=== PATIENT | female | born 1970 | race Caucasian/White ===

== ENCOUNTER 2016-07-14 01:26 | Inpatient (IN) | payer OTHER ==
--- NOTE | ~2016-07-14 | DS ---
Unit #: [id number] #: [id number] Patient: BREEZY GIL [id number] [place] [address] [id number] MR#: [id number] NAME: BREEZY GIL ROOM: P178 Age: 46 Sex: F Admission Date: 07/14/2016 : 1970 Discharge Date: 07/17/2016 Attending Physician: Bradley Orta M.D. Primary Care Physician: Primary Care Physician No DISCHARGE SUMMARY REASON FOR ADMISSION The patient is a 46-year-old single white female, admitted to the [facility] unit with recurrent abuse of alcohol. HOSPITAL COURSE The patient was admitted to the [facility] unit and placed on routine detoxification protocol for alcohol. She was continued on home medications including Glucophage, Robaxin, Claritin, Proventil, and Protonix. She was restarted on Remeron 15 mg at h.s. given her complaints of poor sleep. This physician discussed with the patient possible initiation of Vivitrol in hopes of addressing the patient's ongoing substance abuse. Once again, the patient declined this intervention and on 07/17/2016, requested discharge from the hospital. Once again, the patient's participation within therapeutic milieu had been very poor. Once again, the patient declined a possible pharmacotherapeutic intervention which would reduce her drinking, indicating this physician that the patient fully plans to began drinking shortly upon her discharge from this facility. She was denying suicidal ideation on the morning of 07/17/2016. It is worth noting that the patient did have significant swelling thought to be related to hypoalbuminemia. This did resolve somewhat during her stay in the hospital. FINAL DIAGNOSES Alcohol use disorder, hepatitis C, alcoholic liver disease, diabetes mellitus, environmental allergies, chronic obstructive pulmonary disease, gastroesophageal reflux disease. DISPOSITION ON DISCHARGE The patient is discharged on the following medications; Glucotrol XL 10 mg daily before breakfast for diabetic management, Protonix 40 mg daily for GERD, Proventil HFA one puff q.4 hours p.r.n. shortness of air, Claritin 10 mg once daily for environmental allergies, Robaxin 750 mg t.i.d. for muscle relaxation, Glucophage 500 mg b.i.d. before meals for diabetic management. DISCHARGE INSTRUCTIONS No dietary or physical restrictions were placed upon the patient at the time of discharge. FOLLOWUP Followup will take place through the auspices of community mental health and chemical dependency treatment resources. The patient declining an offer of CD-IOP. Unit #: [id number] #: [id number] Patient: BREEZY GIL PROGNOSIS Her prognosis remains guarded. Dictated by... Bradley Orta M.D. DORA/angel TD: 07/17/2016 23:17 JOB #: [id number] DISCHARGE SUMMARY Page 1 of 1 X Bradley Orta MD X DISCHARGE SUMMARY
--- NOTE | ~2016-07-14 | PN ---
Unit #: [id number] #: [id number] Patient: BREEZY IGL [id number] [facility] [address] [place] [address] [id number] MR#: [id number] NAME: BREEZY GIL ROOM: 78 Age: 46 Sex: F Admission Date: 07/14/2016 : 1970 Attending Physician: Bradley Orta M.D. Admitting Physician: Bradley Orta M.D. Primary Care Physician: Primary Care Physician Sue GALLEGOS PROGRESS NOTES DATE 07/16/2016 DISCUSSION The patient requests reinitiation of psychotropic medications. I have spoken with the patient today; however, about my feelings that it is not safe for her to be taking a psychotropic medication given the potential interaction with alcohol which she continues to be unable to avoid abuse of, I will go ahead and order the ReVia challenge as the patient's swelling is significantly reduced and thought to be related to hypoproteinemia and malnutrition in anticipation of possible administration of Vivitrol shot prior to discharge. Dictated by... Bradley Orta M.D. CB/nataliya TD: 07/18/2016 12:48 JOB #: [id number] [facility] PROGRESS NOTES Page 1 of 1 X Bradley Orta MD PROGRESS NOTE
--- NOTE | ~2016-07-14 | PA ---
Unit #: [id number] #: [id number] Patient: BREEZY GIL [id number] [facility] [address] [place] [address] [id number] I MR#: [id number] NAME: BREEZY GIL ROOM: 74 Age: 46 Sex: F Admission Date: 07/14/2016 : 1970 Date of Assessment: 07/14/2016 Attending Physician: Bradley Orta M.D. Admitting Physician: Bradley Orta M.D. Primary Care Physician: Primary Care Physician No PSYCHIATRIC ASSESSMENT IDENTIFYING INFORMATION The patient is a 46-year-old white female admitted with recurrent abuse of alcohol. CHIEF COMPLAINT It is the same thing. INFORMANT(S) Patient, reliability is fair. HISTORY OF PRESENT ILLNESS The patient is a 46-year-old white female well known to this physician from multiple previous admissions to this facility. She is readmitted having once again relapsed on alcohol. The patient reports no specific participant to this episode but states that she is "fearful that she will kill herself if she continues to drink this way." She states that she has been compliant with prescribed medications during her last stay in this facility. Her psychotropic medications were discontinued given her seemingly abject inability to maintain any significant period of sobriety. When seen today the patient is reporting positive suicidal ideation mainly stating that she plans to "drink herself to . For more complete history of present illness please refer to previous dictated notes. PAST PSYCHIATRIC HISTORY Reviewed, no changes. PAST MEDICAL HISTORY Reviewed, no changes. MEDICATIONS 1. Glucotrol 2. Robaxin 3. Claritin 4. Glucophage 5. Proventil 6. Protonix ALLERGIES Azithromycin, Ketoralac, tromethamine, Toradol, codeine, Zofran, Tramadol, Keflex, latex, erythromycin, morphine, nicotine, propoxyphene, Darvocet. FAMILY HISTORY Reviewed, no changes. Unit #: [id number] #: [id number] Patient: BREEZY GIL SOCIAL HISTORY Reviewed, no changes. MENTAL STATUS EXAMINATION Examination at this time reveals the patient to be an obese disheveled white female appearing significantly older than her stated age. She is in significant physical distress related to alcohol withdrawal. She is awake, alert and oriented in all spheres. Her mood is dysphoric, her affect is flat. Speech is impoverished but generally relevant and coherent. There are no gross deficits in memory or cognition noted. Intelligence is judged to be in the average range based on fund of knowledge. The patient is cooperative throughout the interview. She is currently endorsing positive suicidal ideation. She denies homicidal ideation. She denies any psychotic symptoms. Her judgment and insight appear to be at baseline. ASSETS AND LIABILITIES ASSETS: To be assessed. LIABILITIES: Ongoing substance use. DIAGNOSTIC IMPRESSION 1. Alcohol use disorder. 2. Diabetes mellitus. 3. Environmental allergies. 4. COPD. 5. GERD. TREATMENT PLAN The patient will continue previously prescribed medications. She has in the past declined offers of naltrexone, Vivitrol, Antabuse, etc but again I will bring these medications back into the conversation with her as her stay in the hospital progresses. I do not at this point feel comfortable with reinitiation of any pharmacotherapy given the patient's inability to maintain any significant period of sobriety. ESTIMATED LENGTH OF STAY Five to seven days. Dictated by... Bradley Orta M.D. DORA/katie TD: 07/15/2016 00:17 JOB #: [id number] Unit #: [id number] #: [id number] Patient: BREEZY GIL PSYCHIATRIC ASSESSMENT Page 1 of 1 X Bradley Orta MD X PSYCHIATRIC ASSESSMENT
--- NOTE | ~2016-07-14 | HP ---
Unit #: [id number] #: [id number] Patient: LORRIE GIL [id number] [place] [address] [id number] I MR#: [id number] NAME: LORRIE GIL ROOM: P174 Age: 46 Sex: F Admission Date: 07/14/2016 : 1970 Attending Physician: Bradley Orta M.D. Admitting Physician: Bradley Orta M.D. Primary Care Physician: Primary Care Physician No HISTORY AND PHYSICAL HISTORY OF PRESENT ILLNESS Lorrie Irvin is a 46 year old admitted to [facility] because of her continued abuse of alcohol. She has had numerous admissions to this facility. PAST MEDICAL HISTORY 1. Long history of alcohol abuse 2. History of withdrawal seizures 3. Hepatitis C 4. History of recurrent DVTs PAST SURGICAL HISTORY 1. T & A 2. Cholecystectomy 3. Incisional hernia repair 4. Left foot 5. Oral ALLERGIES Napsyl, Toradol, Zofran, Ultram, Keflex, codeine, Nitrol patch, nicotine patch, erythromycin, latex. SOCIAL HISTORY Smokes one pack per day. Drinks alcohol on a daily basis and has a history of crack cocaine and IV drug use. FAMILY HISTORY Medically noncontributory. REVIEW OF SYSTEMS CONSTITUTIONAL: No fever or chills. HEENT: Denies any sore throat, ear pain or runny nose. CARDIOVASCULAR: Denies chest pain, irregular heart rhythm or palpitations. CHEST: Denies shortness of breath or cough. No hemoptysis. GASTROINTESTINAL: She does report nausea and abdominal pain. ENDOCRINE: Denies history of increased thirst or urination. No recent significant weight loss or gain. GENITOURINARY: Denies dysuria, frequency, or hematuria. SKIN: Denies any rashes. HEMATOLOGIC: Denies history of increased bleeding or bruising. MUSCULOSKELETAL: Denies any hot, swollen joints. No generalized muscle pain. NEUROLOGIC: Denies problems with vision or speech. No frequent, severe Unit #: [id number] #: [id number] Patient: LORRIE GIL headaches. No numbness, tingling or weakness in any extremities. Denies loss of bladder or bowel control. CURRENT MEDICATIONS 1. Detox protocol 2. Protonix 40 mg q day 3. Claritin 10 mg q day 4. Methocarbamol 750 mg t.i.d. 5. Glucotrol XL 10 mg q.a.m. 6. Glucophage 500 mg b.i.d. PHYSICAL EXAMINATION GENERAL: Alert, obese, appearing much older than her stated age of 46, in no apparent distress. VITAL SIGNS: Blood pressure 164/84, heart rate 94, respirations 16, temperature 98.6. WEIGHT: 200 pounds. HEIGHT: 5'2". SKIN: Warm and dry without rash or lesion. HEENT: Normocephalic. TMs not viewed. Oral and nasal passages clear. Conjunctivae clear. Pupils equal, round and reactive to light and accommodation. Extraocular movements intact. NECK: Supple without lymphadenopathy or thyromegaly. HEART: Regular rate and rhythm without murmur. LUNGS: Clear. ABDOMEN: Soft, nontender. : Not done. EXTREMITIES: No evidence of cyanosis, clubbing or edema. Moves all extremities without focal deficit. NEUROLOGICAL: Unable to complete extended exam. She does move all extremities without focal deficit. Hand crew dispatcher is equal and gait normal. IMPRESSION Psychiatric admission. RECOMMENDATIONS PSYCHIATRIC: Per psychiatrist. MEDICAL: I see no contraindications to participating in facility's activities. MEDICAL PROGNOSIS Good. MEDICAL CONDITION Stable. Dictated by... Nasrin Mae PRosaliaARosalia-Ruby. for Chrissy Aguilar/katei TD: 07/15/2016 02:39 Unit #: [id number] #: [id number] Patient: LORRIE GIL JOB #: [id number] HISTORY AND PHYSICAL Page 1 of 1 X Nasrin Mae X HISTORY AND PHYSICAL
--- NOTE | ~2016-07-14 | PN ---
Unit #: [id number] #: [id number] Patient: BREEZY GIL [id number] [facility] [address] [place] [address] [id number] MR#: [id number] NAME: BREEZY GIL ROOM: P178 Age: 46 Sex: F Admission Date: 07/14/2016 : 1970 Attending Physician: Bradley Orta M.D. Admitting Physician: Bradley Orta M.D. Primary Care Physician: Primary Care Physician Sue GALLEGOS PROGRESS NOTES DATE 07/15/2016 DISCUSSION The patient remains quite dysphoric and flat. Staff has noted significant weight gain particularly in the abdominal area probably indicative of ascites from her chronic liver disease. We will ask for medical consult and I have ordered an ammonia level additionally. We will look to possibly initiate naltrexone pending results of that testing. Dictated by... Bradley Orta M.D. CB/leigh TD: 07/15/2016 16:37 JOB #: [id number] [facility] PROGRESS NOTES Page 1 of 1 X Bradley Orta MD X PROGRESS NOTE
[~2016-07-14 01:26] MED LIST: COUMADIN PO; FLAGYL; LEVAQUIN; LORTAB 10/500 T1 TAB; LORTAB 7.5-5001 TAB; LOVENOX SUBQ; PAMELOR; PHENERGAN PR; PHENERGAN12.5 MG/SU RC; PRILOSEC; PRILOSEC PO; VICODIN 5/500 T1 TAB
[2016-07-14 09:46] LABS: BASOPHIL% 0.6 % (0-2.5); EOSINOPHIL# 0.1 X10e3 (0-0.7); EOSINOPHIL% 2.7 % (0.0-7.0); HEMOGLOBIN 11.1 gm/dL (12.0-16.0); LYMPHOCYTE% 20.2 % (17.0-45.0); MEAN CORPUSCULAR HEMOGLOBIN 27.4 PG (28-34); MEAN CORPUSCULAR HGB CONC 31.8 g/dL (30-36); MEAN PLATELET VOLUME 8.3 FL (6.5-11.5); MONOCYTE# 0.2 X10e3 (0-1.0); MONOCYTE% 4.7 % (3.0-12.0); NEUTROPHIL# 3.4 X10e3 (1.5-7.1); NEUTROPHIL% 71.8 % (40-75); PLATELET COUNT 127 X10e3 (140-420); RED BLOOD COUNT 4.07 X10e (3.90-5.30); RED CELL DISTRIBUTION WIDTH 22.6 % (11.0-15.5); WHITE BLOOD COUNT 4.7 X10e3 (4.0-10.5)
[2016-07-14 09:52] LABS: ALBUMIN SERUM 2.8 g/dL (3.5-5.0); BILIRUBIN,TOTAL 0.3 mg/dL (0.2-2.0); CREATININE SERUM 0.5 mg/dL (0.6-1.4); GLOM FILT RATE Estimated 116.9 mL/min (>60); POTASSIUM 3.4 mmol/L (3.5-5.1); PROTEIN TOTAL SERUM 5.8 g/dL (6.0-8.3)
[2016-07-14 09:56] LABS: DIFF IND YES
[2016-07-14 09:58] LABS: FREE THYROXIN (T4) 0.84 ng/dL (0.58-1.64)
[2016-07-14 10:22] LABS: ANISOCYTOSIS MOD; PLATELET ESTIMATE DECREASED (NORMAL)
== END 2016-07-17 16:05 | disposition home or self-care (01) | DRG 897 ==
LOC: P1E 01:26
PROVIDERS: Specialist
PROC: HZ2ZZZZ Detoxification Services for Substance Abuse Treatment (ICD-10-PCS; principal; 2016-07-14)
DX: F10.10 Alcohol abuse, uncomplicated (principal); J44.9 Chronic obstructive pulmonary disease, unspecified; E11.9 Type 2 diabetes mellitus without complications; K21.9 Gastro-esophageal reflux disease without esophagitis; B19.20 Unspecified viral hepatitis C without hepatic coma; Z86.718 Personal history of other venous thrombosis and embolism; Z90.49 Acquired absence of other specified parts of digestive tract; F17.210 Nicotine dependence, cigarettes, uncomplicated; Z79.84 Long term (current) use of oral hypoglycemic drugs
CPT/HCPCS: 80053; 82140; 84439; 84443; 85025; 86592

== ENCOUNTER 2016-07-20 15:26 | Inpatient (IN) | payer OTHER ==
--- NOTE | ~2016-07-20 | PA ---
Unit #: [id number] #: [id number] Patient: BREEZY GIL [id number] [place] [address] [id number] I MR#: [id number] NAME: BREEZY GIL ROOM: 79 Age: 46 Sex: F Admission Date: 07/20/2016 : 1970 Date of Assessment: 07/21/2016 Attending Physician: Bradley Orta M.D. Admitting Physician: Bradley Orta M.D. Primary Care Physician: Primary Care Physician No PSYCHIATRIC ASSESSMENT IDENTIFYING INFORMATION The patient is a 46-year-old white female readmitted the [facility] unit three days after her last discharge complaining of suicidal ideation and ongoing abuse of alcohol. CHIEF COMPLAINT I wasn't through detox INFORMANT The patient, reliability is poor. HISTORY OF PRESENT ILLNESS The patient is a 46-year-old white female last discharged from this facility on 07/17/2016. The patient returned reporting that she "left too early". The patient has been drinking a fifth of vodka on a daily basis and is reporting positive suicidal ideation. She states that she had attempted to jump in front of car on the date of admission but was stopped by her boyfriend. She had also reported positive suicidal ideation with plans to stab herself. When seen today the patient states that "I don't want to " and admits to ongoing abuse of alcohol. She claims to have not been detox at the time of her last discharge but is gently confronted with the fact that she requested discharge. Further the patient is confronted with that fact that she has steadfastly refused to consider initiation of Vivitrol, Campral or Antabuse medication which could assist in her maintenance of sobriety. For more complete history of present illness please refer to previous dictated notes. PAST PSYCHIATRIC HISTORY Reviewed no changes. PAST MEDICAL HISTORY Reviewed no changes. MEDICATIONS 1. Metformin 2. Robaxin 3. Claritin 4. Proventil 5. Protonix 6. Glipizide ALLERGIES Azithromycin, Zofran, tramadol, Keflex, codeine, erythromycin, ketorolac, Unit #: [id number] #: [id number] Patient: BREEZY GIL latex, morphine, Nicotrol. FAMILY HISTORY Noncontributory. SOCIAL HISTORY Reviewed no changes. MENTAL STATUS EXAMINATION At this time reveals the patient to be an obese disheveled white female appearing her stated age. She is in no apparent physical distress at the time of the examination. She is awake, alert and oriented in all spheres. Her mood is dysphoric. Her affect blunted. Speech is generally relevant and coherent. There are no gross deficits in memory or cognition noted. Intelligence is judged to be in the average range based on fund of knowledge. The patient is cooperative throughout the interview. She is currently endorsing positive suicidal ideation. She denies homicidal ideation. She denies any psychotic symptoms. Her judgement and insight appear to be at baseline. ASSETS To be assessed. LIABILITIES Ongoing substance use. DIAGNOSTIC IMPRESSION 1. Alcohol use disorder 2. Dysthymic disorder 3. Alcoholic liver disease 4. Chronic pain 5. Environmental allergies 6. COPD 7. Hypertension 8. GERD TREATMENT PLAN The patient remains hospitalized for safety and stabilization. We will continue previously prescribed medications. I have again spoken to the patient today regarding possible initiation of pharmacotherapeutic measures to address her alcohol craving but again she seems less then optimally interested in considering these treatment options. Whatever the case of routine detoxification protocol has been ordered and suicidal precautions are in place. ESTIMATE LENGTH OF STAY IN THE HOSPITAL Three to seven days. Dr. Palumbo will assume care of the patient in my absence. Dictated by... Bradley Orta M.D. DORA/katie TD: 07/21/2016 21:41 JOB #: [id number] Unit #: [id number] #: [id number] Patient: BREEZY GIL PSYCHIATRIC ASSESSMENT Page 1 of 1 X Bradley Orta MD X PSYCHIATRIC ASSESSMENT
--- NOTE | ~2016-07-20 | HP ---
Unit #: [id number] #: [id number] Patient: LORRIE GIL [id number] [place] [address] [id number] I MR#: [id number] NAME: LORRIE GIL ROOM: P179 Age: 46 Sex: F Admission Date: 07/20/2016 : 1970 Attending Physician: Bradley Orta M.D. Admitting Physician: Bradley Orta M.D. Primary Care Physician: Primary Care Physician No HISTORY AND PHYSICAL HISTORY OF PRESENT ILLNESS Lorrie Irvin is a 46 year old, admitted to [facility] because of her abuse of alcohol. She was just discharged from this facility. The patient was seen and history and physical, dated 07/14/2016 was reviewed. This is current. No changes. Please see history and physical, dated 07/14/2016. Dictated by... Nasrin Mae P.A.-C. for Chrissy Aguilar/nataliya TD: 07/21/2016 12:35 JOB #: [id number] HISTORY AND PHYSICAL Page 1 of 1 X Nasrin Mae HISTORY AND PHYSICAL
== END 2016-07-24 18:05 | disposition home or self-care (01) | DRG 897 ==
LOC: P1E 15:26
DX: F10.20 Alcohol dependence, uncomplicated (principal); R45.851 Suicidal ideations; K70.9 Alcoholic liver disease, unspecified; F34.1 Dysthymic disorder; G89.29 Other chronic pain; J44.9 Chronic obstructive pulmonary disease, unspecified; I10 Essential (primary) hypertension; K21.9 Gastro-esophageal reflux disease without esophagitis
CPT/HCPCS: 82947; 86592

== ENCOUNTER 2016-07-29 12:33 | Inpatient (IN) | payer OTHER ==
--- NOTE | ~2016-07-29 | PN ---
Unit #: [id number] #: [id number] Patient: BREEZY GIL [id number] [facility] [address] [place] [address] [id number] I MR#: [id number] NAME: BREEZY GIL ROOM: [facility] Age: 46 Sex: F Admission Date: 07/29/2016 : 1970 Attending Physician: Bradley Orta M.D. Admitting Physician: Bradley Orta M.D. Primary Care Physician: Generic Doctor Not In System [facility] PROGRESS NOTES DATE 07/31/2016 DISCUSSION The patient has been transferred on one-to-one precautions to the [address] [place] [address] Unit after having become extremely confused and combative last evening. She is cleared considerably today and is apologetic over these events. She is requesting "something for sleep," and we will watch for a couple more days before initiating p.o. Naltrexone in anticipation of a Vivitrol injection prior to discharge. Dictated by... Bradley Orta M.D. CB/cruz TD: 07/31/2016 14:45 JOB #: [id number] [facility] PROGRESS NOTES Page 1 of 1 X Bradley Orta MD PROGRESS NOTE
--- NOTE | ~2016-07-29 | DS ---
Unit #: [id number] #: [id number] Patient: BREEZY GIL [id number] [facility] [address] [place] [address] [id number] I MR#: [id number] NAME: BREEZY GIL ROOM: [facility] Age: 46 Sex: F Admission Date: 07/29/2016 : 1970 Discharge Date: 08/01/2016 Attending Physician: Bradley Orta M.D. Primary Care Physician: Generic Doctor Not In System DISCHARGE SUMMARY REASON FOR ADMISSION The patient is a 46-year-old white female, admitted to the hospital after once again becoming suicidal and abusing alcohol. HOSPITAL COURSE The patient was initially admitted to the [facility] unit, but she began banging her head and voicing suicidal ideation on 07/30/2016 and transfer to the [address] [place] [address] unit became necessary as well as one-to-one precautions. The patient calmed rapidly and by 07/31/2016, was exhibiting little in the way of signs or symptoms of withdrawal. This physician again spoke with the patient regarding possible initiation of therapeutic means to address her ongoing and seemingly intractable alcohol use. The patient was agreeable to a trial of ReVia. This physician hoped that the patient will remain hospitalized long enough to receive a shot of Vivitrol; however, by 08/01/2016, the patient was demanding discharge and met no criteria for involuntary hospitalization. Discharge was ordered. FINAL DIAGNOSES Dysthymic disorder; alcohol use disorder; hepatitis C; alcoholic liver disease, end stage; environmental allergies; chronic obstructive pulmonary disease; diabetes mellitus. DISPOSITION ON DISCHARGE The patient is discharged on the following medications: Glucophage 500 mg b.i.d. for diabetic management; Robaxin 750 mg t.i.d. for muscle relaxation; Claritin 10 mg once daily for environmental allergy; Proventil HFA one puff q.4 hours p.r.n. shortness of air; Glucotrol XL 10 mg daily before breakfast for diabetic management; ReVia 50 mg at bedtime for alcohol craving. DISCHARGE INSTRUCTIONS No dietary or physical restrictions were placed on the patient at the time of discharge. FOLLOWUP Followup will take place through the auspices of community mental health resources. PROGNOSIS The patient's prognosis remains guarded. Dictated by... Unit #: [id number] #: [id number] Patient: LOUISE,BREEZY NATHEN Orta M.D. CB/angel TD: 08/02/2016 06:21 JOB #: [id number] DISCHARGE SUMMARY Page 1 of 1 X Bradley Orta MD X DISCHARGE SUMMARY
--- NOTE | ~2016-07-29 | PN ---
Unit #: [id number] #: [id number] Patient: BREEZY GIL [id number] [facility] [address] [place] [address] [id number] I MR#: [id number] NAME: BREEZY GIL ROOM: [facility] Age: 46 Sex: F Admission Date: 07/29/2016 : 1970 Attending Physician: Bradley Orta M.D. Admitting Physician: Bradley Orta M.D. Primary Care Physician: Generic Doctor Not In System [facility] PROGRESS NOTES DATE 07/30/2016 DISCUSSION The patient continues to exhibit significant symptoms of withdrawal with her 2 most recent CIWA scores of 14 and 11. She is continuing to require medications. We will look to begin p.o. naltrexone in the next couple of days in anticipation of administration of Vivitrol injection. Dictated by... Bradley Orta M.D. CB/cruz TD: 07/30/2016 13:56 JOB #: [id number] [facility] PROGRESS NOTES Page 1 of 1 X Bradley Orta MD X PROGRESS NOTE
--- NOTE | ~2016-07-29 | PA ---
Unit #: [id number] #: [id number] Patient: BREEZY GIL [id number] [facility] [address] [place] [address] [id number] I MR#: [id number] NAME: BREEZY GIL ROOM: [facility] Age: 46 Sex: F Admission Date: 07/29/2016 : 1970 Date of Assessment: 07/29/2016 Attending Physician: Bradley Orta M.D. Admitting Physician: Bradley Orta M.D. Primary Care Physician: Generic Doctor Not In System PSYCHIATRIC ASSESSMENT IDENTIFYING INFORMATION The patient is a 46-year-old white female just discharged from this facility on 07/24/2016. She returns intoxicated and voicing suicidal ideation. INFORMANT(S) Patient. RELIABILITY Poor. CHIEF COMPLAINT None given. HISTORY OF PRESENT ILLNESS The patient is a 46-year-old white female well-known to this physician from multiple previous admissions to this facility the last of which ended on 07/24/2016. The patient returns stating that she maintained sobriety for no significant period of time and is now voicing positive suicidal ideation. The patient does report that she is drinking a fifth of hard liquor on a daily basis. She denies abuse of other psychoactive substances. She is reporting positive suicidal ideation at this time. For a more complete history of present illness, please refer to previous dictated notes. PAST PSYCHIATRIC HISTORY Reviewed, no changes. FAMILY HISTORY Noncontributory. SOCIAL HISTORY Reviewed, no changes. MEDICAL HISTORY Reviewed, no changes. MEDICATION HISTORY At the time of admission, the patient's prescribed medications include Metformin, Robaxin, Claritin, Proventil HFA, glipizide and Protonix. ALLERGIES Azithromycin, Zofran, tramadol, Keflex, codeine, erythromycin, ketorolac, Unit #: [id number] #: [id number] Patient: BREEZY GIL latex, Morphine, Nicotrol. MENTAL STATUS EXAM At this time, reveals the patient to be an obese, disheveled white female appearing her stated age. She is in no apparent physical distress at the time of examination. She is somewhat groggy having received an IM dose of Geodon. She is oriented in all spheres. Her mood is dysphoric. Her affect flat. Speech is generally relevant and coherent though impoverished. There are no gross deficits in memory or cognition noted. Intelligence is judged to be in the average range based on fund of knowledge. The patient is less than optimally cooperative during interview. She is currently endorsing positive suicidal ideation. She denies homicidal ideation. She denies any psychotic symptoms. He judgement and insight appear to be at baseline. ASSETS AND LIABILITIES Patient's assets to be assessed. Liabilities, ongoing substance use. ADMITTING DIAGNOSES 1. Alcohol use disorder. 2. Dysthymic disorder. 3. Alcoholic liver disease. 4. Chronic pain. 5. Hepatitis C by history. 6. Environmental allergies. 7. Chronic obstructive pulmonary disease. 8. Hypertension. 9. Gastroesophageal reflux disease. PSYCHIATRIC PLAN/TREATMENT GOALS The patient remains hospitalized for safety and stabilization. She is today expressing interest in initiation of Vivitrol and we will consider initiation of this medication as the patient's stay in the hospital progresses. Suicide precautions are in place and she has required a one time dose of Geodon secondary to her aggressive behavior while intoxicated on admission to the unit. ESTIMATED LENGTH OF STAY Three to five days with follow up to take place through the auspices of community mental health resources. Dictated by... Bradley Orta M.D. DORA/leigh TD: 07/29/2016 15:11 JOB #: [id number] Unit #: [id number] #: [id number] Patient: BREEZY GIL PSYCHIATRIC ASSESSMENT Page 1 of 1 X Bradley Orta MD X PSYCHIATRIC ASSESSMENT
--- NOTE | ~2016-07-29 | HP ---
Unit #: [id number] #: [id number] Patient: LORRIE GIL [id number] [facility] [address] [place] [address] [id number] I MR#: [id number] NAME: LORRIE GIL ROOM: P178 Age: 46 Sex: F Admission Date: 07/29/2016 : 1970 Attending Physician: Bradley Orta M.D. Admitting Physician: Bradley Orta M.D. Primary Care Physician: Generic Doctor Not In System HISTORY AND PHYSICAL Lorrie Irvin is a 46 year old admitted to [facility] because of her continued abuse of alcohol. She has had numerous admissions to this facility for the same. Patient was seen and H and P dated 07/14/16 was reviewed. This is current. No changes. Please see H and P dated 07/14/16. Dictated by... Nasrin Mae P.A.-C. for Chrissy Aguilar/leigh TD: 07/29/2016 20:57 JOB #: [id number] HISTORY AND PHYSICAL Page 1 of 1 X Nasrin Mae HISTORY AND PHYSICAL
== END 2016-08-01 15:44 | disposition home or self-care (01) | DRG 897 ==
LOC: P1E 12:33 → P1S 07-30 23:49
DX: F10.10 Alcohol abuse, uncomplicated (principal); R45.851 Suicidal ideations; K70.9 Alcoholic liver disease, unspecified; F34.1 Dysthymic disorder; I10 Essential (primary) hypertension; G89.29 Other chronic pain; Z86.19 Personal history of other infectious and parasitic diseases; J44.9 Chronic obstructive pulmonary disease, unspecified; K21.9 Gastro-esophageal reflux disease without esophagitis
CPT/HCPCS: 82947; 86592; J2550; J3486

== ENCOUNTER 2016-08-12 15:34 | Inpatient (IN) | payer OTHER ==
--- NOTE | ~2016-08-12 | CO ---
Unit #: [id number] #: [id number] Patient: LORRIE GIL [id number] [place] [address] [id number] I MR#: [id number] NAME: LORRIE GIL ROOM: [facility] Age: 46 Sex: F Admission Date: 08/12/2016 : 1970 Attending Physician: Bradley Orta M.D. Primary Care Physician: Generic Doctor Not In System Consultation Date: 08/13/2016 CONSULTATION REPORT SUBJECTIVE Lorrie Irvin is a 46-year-old with history of recurrent DVTs. As outlined in her admission H and P dated 08/12/2016, the most recent DVT was diagnosed approximately 2 weeks prior to this admission. Please see H and P dated 08/12/2016. Dictated by... Nasrin Mae P.A.-C. for Chrissy Aguilar/angel TD: 08/13/2016 23:47 JOB #: [id number] CONSULTATION REPORT Page 1 of 1 X Nasrin Mae CONSULTATION REPORT
--- NOTE | ~2016-08-12 | HP ---
Unit #: [id number] #: [id number] Patient: LORRIE GIL [id number] [place] [address] [id number] I MR#: [id number] NAME: LORRIE GIL ROOM: P179 Age: 46 Sex: F Admission Date: 08/12/2016 : 1970 Attending Physician: Bradley Orta M.D. Admitting Physician: Bradley Orta M.D. Primary Care Physician: Generic Doctor Not In System HISTORY AND PHYSICAL HISTORY OF PRESENT ILLNESS Lorrie Irvin is a 46 year old admitted to [facility] because of her continued abuse of alcohol. She has had numerous admissions to this facility for treatment of the same. PAST MEDICAL HISTORY 1. Long history of alcohol abuse. 2. History of withdrawal seizures. 3. Hepatitis C. 4. History of recurrent DVT's. Her latest DVT was diagnosed approximately 2 weeks ago in her left arm after a PICC line was placed. 5. Diabetes mellitus. PAST SURGICAL HISTORY 1. T and A. 2. Cholecystectomy. 3. Incisional hernia repair. 4. Left foot. 5. Oral. ALLERGIES Napsyl, Toradol, Zofran, Ultram, Keflex, codeine, Nitrol patch, nicotine patch, erythromycin, latex. SOCIAL HISTORY Smokes 1 pack per day. Drinks at least a fifth of liquor on a daily basis. Admits to a history of crack cocaine and IV drug use. FAMILY HISTORY Medically noncontributory. REVIEW OF SYSTEMS CONSTITUTIONAL: No fever or chills. HEENT: Denies any sore throat, ear pain or runny nose. CARDIOVASCULAR: Denies chest pain, irregular heart rhythm or palpitations. CHEST: Denies shortness of breath or cough. No hemoptysis. GASTROINTESTINAL: Denies nausea, vomiting, diarrhea or chronic constipation. ENDOCRINE: Denies history of increased thirst or urination. No recent significant weight loss or gain. GENITOURINARY: Denies dysuria, frequency, or hematuria. SKIN: Denies any rashes. Unit #: [id number] #: [id number] Patient: LORRIE GIL HEMATOLOGIC: Denies history of increased bleeding or bruising. MUSCULOSKELETAL: Denies any hot, swollen joints. No generalized muscle pain. NEUROLOGIC: Denies problems with vision or speech. No frequent, severe headaches. No numbness, tingling or weakness in any extremities. Denies loss of bladder or bowel control. CURRENT MEDICATIONS 1. Detox protocol. 2. Lovenox 120 mg daily. 3. Methocarbamol 500 mg t.i.d. 4. Proventil inhaler p.r.n. 5. Glucophage 500 mg b.i.d. 6. Glucotrol XL 10 mg daily. 7. Claritin 10 mg daily. PHYSICAL EXAMINATION GENERAL: Alert, obese, in no apparent distress. VITAL SIGNS: Blood pressure 124/70, heart rate 80, respirations 16, temperature 98.6. WEIGHT: 197. HEIGHT: 5 feet 3 inches. SKIN: Warm and dry without rash or lesion. HEENT: Normocephalic. TMs not viewed. Oral and nasal passages clear. Conjunctivae clear. PERRLA. EOMs intact. NECK: Supple without lymphadenopathy or thyromegaly. HEART: Regular rate and rhythm without murmur. LUNGS: Clear. ABDOMEN: Soft, nontender. : Not done. EXTREMITIES: No evidence of cyanosis, clubbing or edema. Moves all without focal deficit. NEUROLOGICAL: Grossly within normal limits. Cranial Nerves: II: Visual beatty are intact. III, IV AND : Extraocular movements are intact. Pupils are equal, round and reactive to light. V: Facial sensation is grossly normal. VII: Facial movements and expression are normal. VIII: Auditory acuity grossly intact. IX, X: Uvula is midline. Phonation is normal. XI: Patient shrugs shoulders and turns head normally. XII: Tongue protrudes in the midline. Sensory and Motor Function: Sensory and motor sensation is grossly normal. Motor: moves all extremities well. Coordination: Gait is normal. Deep Tendon Reflexes: Intact. IMPRESSION 1. Psychiatric admission. 2. Alcohol abuse. She continues to drink. 3. History of recurrent DVTs. Last DVT documented approximately 2 weeks ago. Patient tells me she has been maintained on Lovenox shots since that time. She was not started on Coumadin and was told to follow up with her PCP for further instructions. She has not seen her PCP. RECOMMENDATIONS PSYCHIATRIC: Per psychiatrist. MEDICAL: 1. See no contraindications to participate in facility's activities. 2. Dc Coumadin and Lovenox 120 mg daily. Unit #: [id number] #: [id number] Patient: LORRIE GIL 3. Start Lovenox 40 mg subcu b.i.d. 4. Detox per protocol. 5. Continue Glucophage and Glucotrol. MEDICAL PROGNOSIS Good. MEDICAL CONDITION Stable. Dictated by... Nasrin Mae P.A.-C. for Chrissy Aguilar/leigh TD: 08/12/2016 20:21 JOB #: [id number] HISTORY AND PHYSICAL Page 1 of 1 X Nasrin Mae X HISTORY AND PHYSICAL
--- NOTE | ~2016-08-12 | DS ---
Unit #: [id number] #: [id number] Patient: BREEZY GIL [id number] [place] [address] [id number] I MR#: [id number] NAME: BREEZY GIL ROOM: 79 Age: 46 Sex: F Admission Date: 08/12/2016 : 1970 Discharge Date: 08/14/2016 Attending Physician: Bradley Orta M.D. Primary Care Physician: Generic Doctor Not In System DISCHARGE SUMMARY REASON FOR ADMISSION The patient is a 46-year-old white female, admitted to the [facility] unit for alcohol detox. HOSPITAL COURSE The patient was admitted to the [facility] unit and placed on a routine detoxification protocol for alcohol. Home medications were continued and the patient was followed related to her clotting status by Ms. Mae. The patient pushed for discharge almost immediately upon arriving into the hospital and exhibited very little in the way of signs or symptoms of withdrawal having only left [facility] a couple of days prior to readmission. On 08/14/2016, the patient requested discharge from the hospital. At that point, she exhibited little in the way of signs or symptoms of withdrawal, but was nonetheless warned of the risks of untreated alcohol withdrawal particularly given her current compromised medical status i.e., recent DVT. Discharge was ordered against medical advice. FINAL DIAGNOSES Alcohol use disorder, dysthymic disorder, history of deep vein thrombosis, gastroesophageal reflux disease, hypertension, end stage hepatic disease. DISPOSITION ON DISCHARGE The patient is discharged on the following medications; Robaxin 500 mg t.i.d. for muscle relaxation, Claritin 10 mg once daily for environmental allergy, Proventil HFA one puff q.4 hours p.r.n. shortness of air, Glucotrol 10 mg daily for diabetic management, Protonix 40 mg daily for GERD, Glucophage 500 mg b.i.d. for diabetic management, Coumadin 7.5 mg every day for anticoagulation. DISCHARGE INSTRUCTIONS No dietary or physical restrictions were placed on the patient at the time of discharge. As noted previously, her discharge is considered against medical advice given her risks of ongoing symptoms of alcohol withdrawal. The patient is informed of these risks including the risks of seizure, delirium tremens, and . It is fully the suspicion of this physician that the patient will be drinking shortly after her discharge from the hospital. She had declined efforts on the part of this physician to reinitiate pharmacotherapy to mitigate some of her alcohol use including possibly use of Antabuse, Vivitrol, and/or Campral. Dictated by... Unit #: [id number] #: [id number] Patient: BREEZY GIL Bradley Orta M.D. CB/angel TD: 08/14/2016 23:22 JOB #: [id number] DISCHARGE SUMMARY Page 1 of 1 X Bradley Orat MD X DISCHARGE SUMMARY
--- NOTE | ~2016-08-12 | PA ---
Unit #: [id number] #: [id number] Patient: BREEZY IGL [id number] [facility] [address] [place] [address] [id number] MR#: [id number] NAME: BREEZY GIL ROOM: P179 Age: 46 Sex: F Admission Date: 08/12/2016 : 1970 Date of Assessment: 08/13/2016 Attending Physician: Bradley Orta M.D. Admitting Physician: Bradley Orta M.D. Primary Care Physician: Generic Doctor Not In System PSYCHIATRIC ASSESSMENT IDENTIFYING INFORMATION The patient is a 46-year-old white female well known to this physician and this facility. She is readmitted reporting positive suicidal ideation. CHIEF COMPLAINT "I'm not suicidal, can I go home ?" INFORMANTS(S) Patient, reliability is fair. HISTORY OF PRESENT ILLNESS The patient is a 46-year-old white female admitted to the [facility] Unit after she had presented to this facility yesterday voicing positive suicidal ideation. She reports that she has been suicidal on and off for the past month. She had reported positive plan to jump in front of an automobile. She has been drinking fifth of hard liquor daily. She left this facility on 08/01/2016 and then was admitted to [facility] on 08/03/2016 and was hospitalized there for 5 days. She was released on 08/08/2016 and began drinking almost immediately. The patient reports that current stressors include difficulties with her 26-year-old daughter who is a heroin addict. She also reports that her son was in a motor vehicle accident yesterday. She is currently denying suicidal ideation, but at the time of admission did report positive suicidal ideation with plan to step in front of an automobile or hang herself. For more complete history of present illness, please refer to previously dictated notes. PAST PSYCHIATRIC HISTORY Reviewed, no changes. PAST MEDICAL HISTORY Significant for a history of recent DVT. MEDICATIONS Warfarin, gabapentin, Risperdal, and Lovenox. ALLERGIES Azithromycin, Zofran, tramadol, cephalexin, codeine, erythromycin, ketorolac, latex, morphine, and nicotine patch. FAMILY HISTORY Reviewed, no changes. Unit #: [id number] #: [id number] Patient: BREEZY GIL SOCIAL HISTORY Reviewed, no changes. MENTAL STATUS EXAMINATION Examination at this time reveals the patient to be a disheveled obese white female appearing older than her stated age. She is in no apparent physical distress at the time of examination. She is awake, alert, and oriented in all spheres. Her mood is mildly dysphoric, her affect constricted. Speech is generally well-coherent. There are no gross deficits in memory or cognition noted. Intelligence is judged to be in the average range based on fund of knowledge. The patient is cooperative throughout the interview. She is currently denying suicidal or homicidal ideation or psychotic features. Judgment and insight appear to be intact. ASSETS AND LIABILITIES The patient's assets are to be assessed. Liabilities: Ongoing alcohol dependence. DIAGNOSTIC IMPRESSION 1. Alcohol use disorder, severe. 2. DVT. 3. Dysthymic disorder. 4. Obesity. 5. Alcoholic liver disease. 6. Chronic obstructive pulmonary disease. TREATMENT PLAN The patient remains hospitalized for safety and stabilization. We will reinitiate previously prescribed medications, and a medical consult sought related to the patient's history of DVT. She is currently denying suicidal ideation and requesting discharge. However, given threats made at the time of admission, it is my feeling that we are best served watching the patient for at least another 24 hours, and we look at discharge then. Dictated by... Bradley Orta M.D. DORA/cruz TD: 08/13/2016 13:28 JOB #: [id number] PSYCHIATRIC ASSESSMENT Page 1 of 1 X Bradley Orta MD X PSYCHIATRIC ASSESSMENT
[2016-08-12 19:04] LABS: PROTHROMBIN TIME (PATIENT) 10.2 SECONDS (9.6-11.5)
[2016-08-13 12:23] LABS: BASOPHIL# 0.1 X10e3 (0-0.3); BASOPHIL% 1.3 % (0-2.5); DIFF IND NO; EOSINOPHIL# 0.1 X10e3 (0-0.7); EOSINOPHIL% 2.4 % (0.0-7.0); HEMATOCRIT 32.9 % (35.0-45.0); HEMOGLOBIN 10.2 gm/dL (12.0-16.0); LYMPHOCYTE# 0.9 X10e3 (1.0-3.5); LYMPHOCYTE% 19.5 % (17.0-45.0); MEAN CELL VOLUME 87.1 FL (83-96); MEAN CORPUSCULAR HEMOGLOBIN 27.1 PG (28-34); MEAN CORPUSCULAR HGB CONC 31.1 g/dL (30-36); MEAN PLATELET VOLUME 8.6 FL (6.5-11.5); MONOCYTE# 0.3 X10e3 (0-1.0); MONOCYTE% 6.3 % (3.0-12.0); NEUTROPHIL# 3.1 X10e3 (1.5-7.1); NEUTROPHIL% 70.5 % (40-75); PLATELET COUNT 137 X10e3 (140-420); RED BLOOD COUNT 3.77 X10e (3.90-5.30); WHITE BLOOD COUNT 4.5 X10e3 (4.0-10.5)
[2016-08-13 12:39] LABS: ALBUMIN SERUM 3.1 g/dL (3.5-5.0); BILIRUBIN,TOTAL 0.5 mg/dL (0.2-2.0); CALCIUM SERUM 9.1 mg/dL (8.4-10.2); CREATININE SERUM 0.6 mg/dL (0.6-1.4); GLOM FILT RATE Estimated 110.1 mL/min (>60); POTASSIUM 3.9 mmol/L (3.5-5.1); PROTEIN TOTAL SERUM 6.3 g/dL (6.0-8.3)
[2016-08-13 12:46] LABS: THYROID STIMULATING HORMONE 2.54 uIU/ml (0.34-5.60)
[2016-08-13 12:53] LABS: FREE THYROXIN (T4) 0.69 ng/dL (0.58-1.64)
[2016-08-14 09:43] LABS: INR 1.1; PROTHROMBIN TIME (PATIENT) 11.4 SECONDS (9.6-11.5)
[2016-08-14 12:30] LABS: URINE APPEARANCE CLEAR; URINE BILIRUBIN NEG (NEG); URINE BLOOD 2+ (NEG); URINE COLOR DK YELLOW; URINE GLUCOSE NEG (NEG); URINE KETONE NEG (NEG); URINE LEUKOCYTE ESTERASE NEG (NEG); URINE NITRATE NEG (NEG); URINE PH 7.5 (5-8); URINE PROTEIN NEG (NEG); URINE SPECIFIC GRAVITY 1.008 (1.003-1.035); URINE UROBILINOGEN 0.2 MG/DL (NEG)
[2016-08-14 12:32] LABS: URBCS1 AUWI 0-2 /[HPF] (0-2); URINE BACTERIA AUWI 1+ (NEGATIVE); URINE SQUAMOUS EPITHELIAL CELL OCC /[HPF]; UWBCS1 AUWI 0-2 (0-5)
[2016-08-14 13:19] LABS: AMPHETAMINE NEG (NEG); BARBITURATES NEG (NEG); BENZODIAZEPINES POS (NEG); COCAINE NEG (NEG); MARIJUANA NEG (NEG); OPIATES NEG (NEG); TRICYCLIC ANTIDEPRESSANTS NEG (NEG); U METHADONE NEG (NEG)
== END 2016-08-14 14:45 | disposition left against medical advice (07) | DRG 894 ==
LOC: P1E 15:34
PROVIDERS: Specialist
PROC: HZ2ZZZZ Detoxification Services for Substance Abuse Treatment (ICD-10-PCS; principal; 2016-08-12)
DX: F10.20 Alcohol dependence, uncomplicated (principal); R45.851 Suicidal ideations; I82.409 Acute embolism and thrombosis of unspecified deep veins of unspecified lower extremity; K70.9 Alcoholic liver disease, unspecified; J44.9 Chronic obstructive pulmonary disease, unspecified; F34.1 Dysthymic disorder; E66.9 Obesity, unspecified; Z88.5 Allergy status to narcotic agent; Z88.8 Allergy status to other drugs, medicaments and biological substances; Z88.1 Allergy status to other antibiotic agents; Z91.040 Latex allergy status; Z86.19 Personal history of other infectious and parasitic diseases; E11.9 Type 2 diabetes mellitus without complications; Z90.49 Acquired absence of other specified parts of digestive tract; F17.210 Nicotine dependence, cigarettes, uncomplicated; Z79.84 Long term (current) use of oral hypoglycemic drugs; Z79.01 Long term (current) use of anticoagulants; K21.9 Gastro-esophageal reflux disease without esophagitis
CPT/HCPCS: 80053; 80307; 81003; 84439; 84443; 85025; 85610; 86592; J1650

== ENCOUNTER 2016-10-07 10:00 | Inpatient (IN) | payer OTHER ==
--- NOTE | ~2016-10-07 | PN ---
Unit #: [id number] #: [id number] Patient: BREEZY GIL [id number] [facility] [address] [place] [address] [id number] I MR#: [id number] NAME: BREEZY GIL ROOM: P184 Age: 46 Sex: F Admission Date: 10/07/2016 : 1970 Attending Physician: Bradley Orta M.D. Admitting Physician: Bradley Orta M.D. Primary Care Physician: Generic Doctor Not In System [facility] PROGRESS NOTES DATE 10/09/2016 DISCUSSION The patient is abed today. She continues to complain of significant discomfort related to alcohol withdrawal, particularly GI in nature. She reports increased delusional thinking during the night and we will go ahead an increase her Risperdal to 3 mg. Additionally, we will begin p.o. ReVia this evening in anticipation of administration of a Vivitrol shot prior to discharge. Dictated by... Bradley Orta M.D. CB/leigh TD: 10/09/2016 15:04 JOB #: [id number] [facility] PROGRESS NOTES Page 1 of 1 X Bradley Orta MD X PROGRESS NOTE
--- NOTE | ~2016-10-07 | PA ---
Unit #: [id number] #: [id number] Patient: BREEZY GIL [id number] [place] [address] [id number] MR#: [id number] NAME: BREEZY GIL ROOM: 84 Age: 46 Sex: F Admission Date: 10/07/2016 : 1970 Date of Assessment: 10/07/2016 Attending Physician: Bradley Orta M.D. Admitting Physician: Bradley Orta M.D. Primary Care Physician: Generic Doctor Not In System PSYCHIATRIC ASSESSMENT IDENTIFYING INFORMATION The patient is a 46-year-old white female, well known to this physician from multiple previous admissions to this facility. She is readmitted having relapsed on alcohol and reporting suicidal ideation. INFORMANT(S) Patient. RELIABILITY Patient reliability is good. CHIEF COMPLAINT "I want to quit drinking." HISTORY OF PRESENT ILLNESS The patient is a 46-year-old white female, last discharged from this facility on 08/14. She is readmitted with a recent relapse of alcohol use. The patient was reporting suicidal ideation last evening with plan to place a plastic bag over her head. The patient's blood alcohol on admission was 0.109. The patient has a history of multiple previous admissions to this facility but has never been compliant with the prescribed psychotropic medications or follow up for more than a day or so. The patient is, today, expressing interest in initiation of Vivitrol and other steps to curb her alcohol craving. For a more complete history of present illness please refer to the previously dictated notes. PAST PSYCHIATRIC HISTORY Reviewed and no changes. PAST MEDICAL HISTORY Reviewed and no changes. MEDICATIONS 1. Robaxin 2. Claritin 3. Glipizide 4. Protonix 5. Glucophage 6. Lamictal 7. Risperdal 8. Gabapentin 9. Albuterol 10. Remeron Unit #: [id number] #: [id number] Patient: BREEZY GIL ALLERGIES Cephalexin, Zofran, erythromycin, Keflex, azithromycin, codeine, latex, tramadol, Ketoralac, morphine, and nicotine patch. FAMILY HISTORY Reviewed and no changes. SOCIAL HISTORY Reviewed and no changes. MENTAL STATUS EXAM At this time reveals an obese disheveled white female, appearing her stated age. She is in no apparent physical distress at the time of the examination. She is awake, alert, and oriented in all spheres. Her mood is dysphoric. Her affect blunted. Speech is generally relevant and coherent. There are no gross deficits to memory or cognition noted. Intelligence is judged to be in the average range based on fund of knowledge. The patient is cooperative throughout the interview. She continues to endorse positive suicidal ideation during today's interview. She denies homicidal ideation. ASSETS To be assessed. LIABILITIES Ongoing substance use. DIAGNOSTIC IMPRESSION [place] I: Alcohol use disorder. Dysthymic disorder. [place] II: [place] III: Diabetes mellitus. Cirrhotic liver disease. TREATMENT PLAN The patient remains hospitalized for safety and stabilization. We will continue previously prescribed medications and we will consider initiation of pharmacotherapeutic measures to assist the patient's maintenance of sobriety including possible initiation of Vivitrol and/or Campral. ESTIMATED LENGTH OF STAY IN THE HOSPITAL Seac-ok-hqmpd days. Dictated by... Bradley Orta M.D. DORA/nataliya TD: 10/08/2016 08:55 JOB #: [id number] Unit #: [id number] #: [id number] Patient: BREEZY GIL PSYCHIATRIC ASSESSMENT Page 1 of 1 X Bradley Orta MD X PSYCHIATRIC ASSESSMENT
--- NOTE | ~2016-10-07 | CO ---
Unit #: [id number] #: [id number] Patient: LORRIE GIL [id number] [place] [address] [id number] I MR#: [id number] NAME: LORRIE GIL ROOM: [facility] Age: 46 Sex: F Admission Date: 10/07/2016 : 1970 Attending Physician: Bradley Orta M.D. Primary Care Physician: Cleo Doctor Not In System Consultation Date: 10/13/2016 CONSULTATION REPORT SUBJECTIVE Lorrie Irvin is a 46-year-old with a long history of alcohol abuse. Admission labs were significant for potassium of 3.3 and magnesium 0.8 with a calcium 6.9. ASSESSMENT Electrolyte and mineral deficiency. PLAN Tums 1000 mg chewable p.o. b.i.d. and Mag Ox 400 mg one p.o. b.i.d. The patient will need to follow up with her primary care. Dictated by... Nasrin Mae P.A.-C. for Chrissy Aguilar/angel TD: 10/22/2016 02:42 JOB #: [id number] CONSULTATION REPORT Page 1 of 1 X Nasrin Mae CONSULTATION REPORT
--- NOTE | ~2016-10-07 | PN ---
Unit #: [id number] #: [id number] Patient: BREEZY GIL [id number] [facility] [address] [place] [address] [id number] MR#: [id number] NAME: BREEZY GIL ROOM: P184 Age: 46 Sex: F Admission Date: 10/07/2016 : 1970 Attending Physician: Bradley Orta M.D. Admitting Physician: Bradley Orta M.D. Primary Care Physician: Generic Doctor Not In System [facility] PROGRESS NOTES DATE 10/08/2016 DISCUSSION The patient continues to complain of severe discomfort related to alcohol withdrawal. She remains dysphoric, anxious and hopeless and is expressing interest in initiation of pharmacotherapy to address her ongoing alcohol use. We will begin Campral 333 mg 2 tablets 3 times daily today and will look to possibly begin the patient on Vivitrol prior to her discharge from the hospital. Dictated by... Bradley Orta M.D. CB/leigh TD: 10/08/2016 17:12 JOB #: [id number] [facility] PROGRESS NOTES Page 1 of 1 X Bradley Orta MD PROGRESS NOTE
--- NOTE | ~2016-10-07 | PN ---
Unit #: [id number] #: [id number] Patient: LORRIE GIL [id number] [facility] [address] [place] [address] [id number] I MR#: [id number] NAME: LORRIE GIL ROOM: P184 Age: 46 Sex: F Admission Date: 10/07/2016 : 1970 Attending Physician: Bradley Orta M.D. Admitting Physician: Bradley Orta M.D. Primary Care Physician: Generic Doctor Not In System [facility] PROGRESS NOTES DATE OF SERVICE 10/13/2016 DISCUSSION Lorrie is seen today in coverage for Dr. Orta. She continues to have qrht-gj-jdidpkuy detox symptoms today and complains of flu-like symptoms including nausea and some abdominal discomfort. She is alert and fully oriented. Her memory and concentration are fair. Her thought processes are logical with no active psychosis. She continues to be equivocal about suicidal ideation. ASSESSMENT Alcohol dependence. PLAN We will recheck potassium and magnesium levels in the morning and continue with Phenergan for nausea. Dictated by... Chrissy Sotelo/katie TD: 10/18/2016 23:04 JOB #: [id number] [facility] PROGRESS NOTES Page 1 of 1 X David Palumbo MD PROGRESS NOTE
--- NOTE | ~2016-10-07 | CO ---
Unit #: [id number] #: [id number] Patient: LORRIE GIL [id number] [place] [address] [id number] I MR#: [id number] NAME: LORRIE GIL ROOM: 84 Age: 46 Sex: F Admission Date: 10/07/2016 : 1970 Attending Physician: Bradley Orta M.D. Primary Care Physician: Cleo Doctor Not In System Consultation Date: 10/08/2016 CONSULTATION REPORT Lorrie Irvin is a 46-year-old with history of alcohol abuse and diabetes mellitus. She has had numerous admissions to [facility] and is well known to us. During this admission, her Accu-Cheks will be monitored a.c. and h.s. She will be provided a NovoLog sliding scale and Glucophage 500 mg b.i.d. will be continued. Her Glucotrol XL 10 mg a day will be discontinued because of the risk of hypoglycemia especially during her detox. She does experience some nausea and vomiting during detox. Dictated by... Nasrin Mae P.A.-C. for Chrissy Aguilar/angel TD: 10/10/2016 21:38 JOB #: [id number] CONSULTATION REPORT Page 1 of 1 X Nasrin Mae CONSULTATION REPORT
--- NOTE | ~2016-10-07 | CO ---
Unit #: [id number] #: [id number] Patient: LORRIE GIL [id number] [place] [address] [id number] I MR#: [id number] NAME: LORRIE GIL ROOM: 84 Age: 46 Sex: F Admission Date: 10/07/2016 : 1970 Attending Physician: Bradley Orta M.D. Primary Care Physician: Generic Doctor Not In System Consultation Date: 10/10/2016 CONSULTATION REPORT Medical consult was requested by Dr. Orta and completed on 10/10/2016. HISTORY OF PRESENT ILLNESS Lorrie reports that for the past week, she has been having burning with urination and increased frequency. She denies muscle aches or chills and does not have any back pain. No blood in her urine. No odor. She does report she waking up frequently at night to urinate. UA showed positive nitrites, positive white blood cells, and 4+ bacteria. PHYSICAL EXAMINATION CARDIAC: Regular rate and rhythm. No murmurs, gallops, or rubs. RESPIRATORY: Clear to auscultation bilaterally. ABDOMEN: Bowel sounds positive in all quadrants. No abdominal tenderness with palpation. No CVA tenderness or flank pain. ASSESSMENT AND PLAN Urinary tract infection. We will begin amoxicillin 875 mg p.o. b.i.d. x3 days. Please notify if symptoms are unresolved. Dictated by... Radha Pérez A.P.R.N. for Chirssy Aguilar/angel TD: 10/10/2016 23:19 JOB #: [id number] CONSULTATION REPORT Page 1 of 1 X RADHA SIMON APRN CONSULTATION REPORT
--- NOTE | ~2016-10-07 | CO ---
Unit #: [id number] #: [id number] Patient: LORRIE GIL [id number] [place] [address] [id number] MR#: [id number] NAME: LORRIE GIL ROOM: [facility] Age: 46 Sex: F Admission Date: 10/07/2016 : 1970 Attending Physician: Bradley Orta M.D. Primary Care Physician: Cleo Doctor Not In System Consultation Date: 10/11/2016 CONSULTATION REPORT HISTORY OF PRESENT ILLNESS Lorrie reports having cramping and contractures of her hands that she first started noticing yesterday. She has also had tingling in her feet and her legs, but no leg or muscle cramps anywhere other than her hand. She denies any chest palpitations or chest pain. No shortness of breath or trouble breathing. Her potassium on 10/08/2016 was 3.1, this morning was 3.2; sodium this morning was 136. Hemoglobin was 9.8, hematocrit was 30.9, and she had platelets of 88. All CBC results are from 10/08/2016. She has no magnesium results. She has no other complaints. PHYSICAL EXAMINATION CARDIAC: Regular rate and rhythm. No murmur, gallop, or rub. RESPIRATORY: Clear to auscultation bilaterally. MUSCULOSKELETAL: Full range of motion of all joints including hands. No contractures noted on exam ASSESSMENT AND PLAN 1. Hand cramping. During evaluation, her hands appeared normal. However, staff report that they have seen contractures. Potassium was 3.2 this morning. We will begin her on 20 mEq of p.o. liquid potassium, and check a BMP and magnesium level in the morning. Please notify results. 2. Anemia. We will repeat a CBC tomorrow. Dictated by... Lidia BritoRRain. for Chrissy Aguilar/angel TD: 10/12/2016 01:22 JOB #: [id number] CONSULTATION REPORT Page 1 of 1 X [facility] AMIN X CONSULTATION REPORT
--- NOTE | ~2016-10-07 | HP ---
Unit #: [id number] #: [id number] Patient: LORRIE GIL [id number] [place] [address] [id number] I MR#: [id number] NAME: LORRIE GIL ROOM: P184 Age: 46 Sex: F Admission Date: 10/07/2016 : 1970 Attending Physician: Bradley Orta M.D. Admitting Physician: Bradley Orta M.D. Primary Care Physician: Cleo Doctor Not In System HISTORY AND PHYSICAL HISTORY OF PRESENT ILLNESS Lorrie Irvin is a 46 year old admitted to [facility] because of her continued abuse of alcohol. She has had numerous admissions to this facility. PAST MEDICAL HISTORY 1. Long history of alcohol abuse. 2. History of withdrawal seizures. 3. Hepatitis C. 4. History of recurrent DVTs. 5. Diabetes mellitus. PAST SURGICAL HISTORY 1. T and A. 2. Cholecystectomy. 3. Incisional hernia repair. 4. Left foot. 5. Oral. ALLERGIES Napsil, Toradol, Zofran, Ultram, Keflex, codeine, nitro patch, nicotine patch, erythromycin, and latex. SOCIAL HISTORY Smokes one pack per day. Drinks at least a fifth of liquor on a daily basis and has a history of crack cocaine use and IV drug use. FAMILY HISTORY Medically noncontributory. REVIEW OF SYSTEMS CONSTITUTIONAL: No fever or chills. HEENT: Denies any sore throat, ear pain or runny nose. CARDIOVASCULAR: Denies chest pain, irregular heart rhythm or palpitations. CHEST: Denies shortness of breath or cough. No hemoptysis. GASTROINTESTINAL: She does report generalized abdominal cramps with nausea. ENDOCRINE: Denies history of increased thirst or urination. No recent significant weight loss or gain. GENITOURINARY: Denies dysuria, frequency, or hematuria. SKIN: Denies any rashes. HEMATOLOGIC: Denies history of increased bleeding or bruising. MUSCULOSKELETAL: Denies any hot, swollen joints. No generalized muscle pain. Unit #: [id number] #: [id number] Patient: LORRIE GIL NEUROLOGIC: Denies problems with vision or speech. No frequent, severe headaches. No numbness, tingling or weakness in any extremities. Denies loss of bladder or bowel control. CURRENT MEDICATIONS 1. Detox protocol. 2. Protonix 40 mg q. day. 3. Risperdal 2 mg q.h.s. 4. Methocarbamol 500 mg t.i.d. 5. Glucophage 500 mg b.i.d. 6. Neurontin 300 mg t.i.d. 7. NovoLog per sliding scale. PHYSICAL EXAMINATION GENERAL: Alert, appearing much older than her stated age of 46. No apparent distress. VITAL SIGNS: Blood pressure 140/62, heart rate 80, respirations 16, and temperature 98.6. WEIGHT: 221. HEIGHT: 5 feet 2 inches. SKIN: Warm and dry without rash or lesion. HEENT: Normocephalic. TMs not viewed. Oral and nasal passages clear. Conjunctivae clear. PERRLA. EOMs intact. NECK: Supple without lymphadenopathy or thyromegaly. HEART: Regular rate and rhythm without murmur. LUNGS: Clear. ABDOMEN: Soft, nontender. : Not done. EXTREMITIES: No evidence of cyanosis, clubbing or edema. Moves all without focal deficit. NEUROLOGICAL: Unable to complete extended exam. She does move all extremities without focal deficit. Hand architectural representative is equal and gait is normal. IMPRESSION Psychiatric admission. RECOMMENDATIONS PSYCHIATRIC: Per psychiatrist. MEDICAL: I see no contraindication to participate in this facility's activities. MEDICAL PROGNOSIS Good. MEDICAL CONDITION Stable. Dictated by... Nasrin Mae P.A.-C. for Chrissy Aguilar/cruz TD: 10/08/2016 09:29 JOB #: [id number] Unit #: [id number] #: [id number] Patient: LORRIE GIL HISTORY AND PHYSICAL Page 1 of 1 X Nasrin Mae HISTORY AND PHYSICAL
--- NOTE | ~2016-10-07 | PN ---
Unit #: [id number] #: [id number] Patient: BREEZY GIL [id number] [facility] [address] [place] [address] [id number] I MR#: [id number] NAME: BREEZY GIL ROOM: P184 Age: 46 Sex: F Admission Date: 10/07/2016 : 1970 Attending Physician: Bradley Orta M.D. Admitting Physician: Bradley Orta M.D. Primary Care Physician: Generic Doctor Not In System [facility] PROGRESS NOTES DATE 10/11/2016 DISCUSSION Upon today's assessment the patient was found lying in her bed. She is reporting that she has suffered from diarrhea and stomach cramps for a few days now and feels that she thinks that her electrolytes are off because her hands are starting to draw up. Discussed this with nursing staff and they reported that her potassium level was 3.1 and so a medical consult was ordered and a CMP to reevaluate the potassium and possibly replace that with medication. She is still endorses positive suicidal ideation though reports she has no plan. She states that the feelings of suicide "come and go." ASSESSMENT Major depressive disorder and alcohol dependence with withdrawal uncomplicated. PLAN Repeat CMP with a med consult ordered. Dictated by... Beverley Hemphill/katie TD: 10/14/2016 00:29 JOB #: [id number] [facility] PROGRESS NOTES Page 1 of 1 X Brooke Tavarez PROGRESS NOTE
--- NOTE | ~2016-10-07 | PN ---
Unit #: [id number] #: [id number] Patient: BREEZY ADKINS [id number] [facility] [address] [place] [address] [id number] MR#: [id number] NAME: BREEZY ADKINS ROOM: P184 Age: 46 Sex: F Admission Date: 10/07/2016 : 1970 Attending Physician: Bradley Orta M.D. Admitting Physician: Bradley Orta M.D. Primary Care Physician: Generic Doctor Not In System [facility] PROGRESS NOTES DATE 10/12/2016 DISCUSSION Upon today's assessment Ms. Adkins was found lying in her bed complaining of moderate signs and symptoms of withdrawal at this time. She still has complaints of "diarrhea" and states that she "feels terrible." The HANDBAG DESIGNER saw and evaluated her yesterday and also ordered a repeat of magnesium level. At this time, she reports medications given for diarrhea and some intermittent vomiting are effective. She currently denies suicidal ideation today and reports no plan or intent. She denies auditory or visual hallucinations and no overt symptoms of psychosis was noted. Dictated by... Corrine iWnter APRN for Chrissy Sotelo/katie TD: 10/14/2016 00:35 JOB #: [id number] [facility] PROGRESS NOTES Page 1 of 1 X CORRINE WINTER PROGRESS NOTE
--- NOTE | ~2016-10-07 | CO ---
Unit #: [id number] #: [id number] Patient: LORRIE GIL [id number] [place] [address] [id number] I MR#: [id number] NAME: LORRIE GIL ROOM: 84 Age: 46 Sex: F Admission Date: 10/07/2016 : 1970 Attending Physician: Bradley Orta M.D. Primary Care Physician: Generic Doctor Not In System Consultation Date: 10/07/2016 CONSULTATION REPORT SUBJECTIVE Lorrie Irvin is a 46-year-old with history of diabetes mellitus. This was outlined under her admission H and P dated 10/07/2016. Please see H and P dated 10/07/2016. Dictated by... Nasrin Mae P.A.-C. for Chrissy Aguilar/angel TD: 10/10/2016 22:24 JOB #: [id number] CONSULTATION REPORT Page 1 of 1 X Nasrin Mae CONSULTATION REPORT
[2016-10-08 09:56] LABS: ALBUMIN SERUM 2.8 g/dL (3.5-5.0); BILIRUBIN,TOTAL 0.8 mg/dL (0.2-2.0); BUN/CREATININE RATIO 12.85; CALCIUM SERUM 7.3 mg/dL (8.4-10.2); CREATININE SERUM 0.7 mg/dL (0.6-1.4); GLOM FILT RATE Estimated 104.6 mL/min (>60); POTASSIUM 3.1 mmol/L (3.5-5.1); PROTEIN TOTAL SERUM 5.9 g/dL (6.0-8.3)
[2016-10-08 10:33] LABS: BASOPHIL% 0.4 % (0-2.5); HEMATOCRIT 30.9 % (35.0-45.0); HEMOGLOBIN 9.8 gm/dL (12.0-16.0); LYMPHOCYTE# 0.8 X10e3 (1.0-3.5); MEAN CELL VOLUME 87.9 FL (83-96); MEAN CORPUSCULAR HGB CONC 31.8 g/dL (30-36); MEAN PLATELET VOLUME 9.8 FL (6.5-11.5); MONOCYTE# 0.2 X10e3 (0-1.0); MONOCYTE% 5.1 % (3.0-12.0); NEUTROPHIL# 3.5 X10e3 (1.5-7.1); NEUTROPHIL% 75.5 % (40-75); RED BLOOD COUNT 3.51 X10e (3.90-5.30); RED CELL DISTRIBUTION WIDTH 23.1 % (11.0-15.5); WHITE BLOOD COUNT 4.6 X10e3 (4.0-10.5)
[2016-10-08 10:34] LABS: DIFF IND YES; PLATELET COUNT 88 X10e3 (140-420)
[2016-10-08 10:36] LABS: PLATELET ESTIMATE DECREASED (NORMAL)
[2016-10-09 10:29] LABS: URINE APPEARANCE CLOUDY; URINE BLOOD 1+ (NEG); URINE COLOR DK YELLOW; URINE GLUCOSE NEG (NEG); URINE KETONE NEG (NEG); URINE LEUKOCYTE ESTERASE 2+ (NEG); URINE NITRATE POS (NEG); URINE PH 6.5 (5-8); URINE PROTEIN 1+ (NEG); URINE SPECIFIC GRAVITY 1.022 (1.003-1.035)
[2016-10-09 10:32] LABS: URINE BACTERIA AUWI 4+ (NEGATIVE); URINE SQUAMOUS EPITHELIAL CELL FEW /[HPF]; UWBCS1 AUWI 100-200 (0-5)
[2016-10-09 10:42] LABS: URINE BILIRUBIN NEG (NEG)
[2016-10-09 11:02] LABS: AMPHETAMINE NEG (NEG); BARBITURATES NEG (NEG); BENZODIAZEPINES POS (NEG); COCAINE NEG (NEG); MARIJUANA NEG (NEG); OPIATES NEG (NEG); TRICYCLIC ANTIDEPRESSANTS NEG (NEG); U METHADONE NEG (NEG)
[2016-10-11 14:35] LABS: ALBUMIN SERUM 3.7 g/dL (3.5-5.0); BILIRUBIN,TOTAL 0.9 mg/dL (0.2-2.0); BUN/CREATININE RATIO 13.33; CALCIUM SERUM 7.1 mg/dL (8.4-10.2); CREATININE SERUM 0.9 mg/dL (0.6-1.4); GLOM FILT RATE Estimated 77.3 mL/min (>60); POTASSIUM 3.2 mmol/L (3.5-5.1); PROTEIN TOTAL SERUM 7.6 g/dL (6.0-8.3)
[2016-10-13 12:30] LABS: BASOPHIL% 0.4 % (0-2.5); EOSINOPHIL# 0.1 X10e3 (0-0.7); EOSINOPHIL% 0.8 % (0.0-7.0); HEMATOCRIT 35.3 % (35.0-45.0); HEMOGLOBIN 11.3 gm/dL (12.0-16.0); LYMPHOCYTE% 10.3 % (17.0-45.0); MEAN CELL VOLUME 88.5 FL (83-96); MEAN CORPUSCULAR HEMOGLOBIN 28.3 PG (28-34); MEAN CORPUSCULAR HGB CONC 31.9 g/dL (30-36); MEAN PLATELET VOLUME 9.3 FL (6.5-11.5); MONOCYTE# 0.4 X10e3 (0-1.0); MONOCYTE% 4.2 % (3.0-12.0); NEUTROPHIL# 8.1 X10e3 (1.5-7.1); NEUTROPHIL% 84.3 % (40-75); PLATELET COUNT 127 X10e3 (140-420); RED BLOOD COUNT 3.99 X10e (3.90-5.30); RED CELL DISTRIBUTION WIDTH 22.9 % (11.0-15.5); WHITE BLOOD COUNT 9.6 X10e3 (4.0-10.5)
[2016-10-13 12:32] LABS: DIFF IND YES
[2016-10-13 12:57] LABS: BUN/CREATININE RATIO 25.71; CALCIUM SERUM 6.9 mg/dL (8.4-10.2); CREATININE SERUM 0.7 mg/dL (0.6-1.4); GLOM FILT RATE Estimated 104.6 mL/min (>60); POTASSIUM 3.6 mmol/L (3.5-5.1)
[2016-10-13 13:01] LABS: MAGNESIUM 0.7 mg/dL (1.6-3.0)
[2016-10-13 13:04] LABS: PLATELET ESTIMATE DECREASED (NORMAL)
[2016-10-13 13:05] LABS: ANISOCYTOSIS MOD
[2016-10-13 13:06] LABS: POIKILOCYTOSIS SL
[2016-10-14 09:40] LABS: POTASSIUM 3.3 mmol/L (3.5-5.1)
[2016-10-14 09:42] LABS: MAGNESIUM 0.8 mg/dL (1.6-3.0)
== END 2016-10-14 11:05 | disposition home or self-care (01) | DRG 897 ==
LOC: P1E 12:19
PROVIDERS: Specialist
PROC: HZ2ZZZZ Detoxification Services for Substance Abuse Treatment (ICD-10-PCS; principal; 2016-10-07)
DX: F10.230 Alcohol dependence with withdrawal, uncomplicated (principal); K70.30 Alcoholic cirrhosis of liver without ascites; N39.0 Urinary tract infection, site not specified; F34.1 Dysthymic disorder; E11.9 Type 2 diabetes mellitus without complications; B19.20 Unspecified viral hepatitis C without hepatic coma; Z90.49 Acquired absence of other specified parts of digestive tract; Z91.040 Latex allergy status; F17.210 Nicotine dependence, cigarettes, uncomplicated
CPT/HCPCS: 80048; 80053; 80307; 81003; 82947; 83735; 84132; 84703; 85025; 86592; J2550

== ENCOUNTER 2016-11-03 11:16 | Inpatient (IN) | payer OTHER ==
[~2016-11-03] VITALS: Ht 157.5 cm; Wt 77.1 kg
--- NOTE | ~2016-11-03 | CO ---
Unit #: [id number] #: [id number] Patient: LORRIE GIL [id number] [place] [address] [id number] MR#: [id number] NAME: LORRIE GIL ROOM: [facility] Age: 46 Sex: F Admission Date: 11/03/2016 : 1970 Attending Physician: Bradley Orta M.D. Primary Care Physician: Generic Doctor Not In System Consultation Date: 11/03/2016 CONSULTATION REPORT HISTORY OF PRESENT ILLNESS Lorrie has a history of type 2 diabetes. She has had multiple admissions for detox from alcohol and each admission, she has required sliding-scale insulin to manage her blood sugars. This morning, she had a blood sugar of greater than 400, and again before dinner was over 200. She reports she has not been taking any of her medications since she was last discharged. She has no complaints. PHYSICAL EXAMINATION CARDIAC: Regular rate and rhythm. No murmurs, gallops, or rubs. RESPIRATORY: Clear to auscultation bilaterally. ASSESSMENT AND PLAN Type 2 diabetes. We will begin Accu-Cheks AC and HS and sliding scale insulin per protocol. Please notify if blood sugars remain consistently elevated. Dictated by... Beverley Brito/angel TD: 11/04/2016 03:39 JOB #: [id number] CONSULTATION REPORT Page 1 of 1 X BRADFORD SIMON APRN X CONSULTATION REPORT
--- NOTE | ~2016-11-03 | DS ---
Unit #: [id number] #: [id number] Patient: BREEZY GIL [id number] [place] [address] [id number] I MR#: [id number] NAME: BREEZY GIL ROOM: [facility] Age: 46 Sex: F Admission Date: 11/03/2016 : 1970 Discharge Date: 11/09/2016 Attending Physician: Bradley Orta M.D. DISCHARGE SUMMARY REASON FOR ADMISSION The patient is a 46-year-old white female, well known to this physician with history of multiple previous admissions to this facility. She was admitted with suicidal ideation and recurrence of alcohol use. HOSPITAL COURSE The patient was admitted to the [facility] unit and placed on routine detoxification protocol for alcohol. Home medications were continued. The patient's stay in the hospital was a fairly typical one. She had a fairly arduous detox course and participated to no significant degree within the therapeutic milieu. She did complain of visual hallucinations during her stay in the hospital. She did complain of some abdominal pain on 11/08/2016 and complained that she felt that she may be having symptoms of pancreatitis; however, laboratory tests were negative for this condition. The patient had throughout her stay in the hospital stated a wish to go to residential treatment, but on 11/09/2016 demanded discharge from the hospital, stating that she had no interest in residential chemical dependency treatment indicating once again her other lack of investment in maintenance of sobriety. Discharge was ordered. FINAL DIAGNOSES Alcohol use disorder and history of alcoholic hallucinosis, dysthymic disorder, gastroesophageal reflux disease, end-stage liver disease, diabetes mellitus, chronic obstructive pulmonary disease. DISPOSITION ON DISCHARGE The patient is discharged on the following medications; NovoLog sliding scale for diabetic management, Neurontin 300 mg t.i.d. for chronic pain, Remeron 30 mg at bedtime for depression, Campral 666 mg t.i.d. for alcohol craving, Risperdal 3 mg at bedtime for hallucinosis, ReVia 50 mg at bedtime for alcohol craving, Robaxin 500 mg t.i.d. for muscle relaxation, Claritin 10 mg daily for environmental allergies, Protonix 40 mg daily for GERD, Glucophage 500 mg b.i.d. before meals for diabetic management, Proventil HFA 2 puffs q.i.d. p.r.n. shortness of air, Mag-Ox 400 mg b.i.d., Tums 1000 mg b.i.d. for calcium supplementation. DISCHARGE INSTRUCTIONS No dietary or physical restrictions were placed on the patient at the time of discharge. FOLLOWUP Followup will take place through the auspices of [facility]. Unit #: [id number] #: [id number] Patient: BREEZY GIL PROGNOSIS Remains guarded. Dictated by... Bradley Orta M.D. CB/angel TD: 11/09/2016 14:10 JOB #: [id number] DISCHARGE SUMMARY Page 1 of 1 X Bradley Orta MD X DISCHARGE SUMMARY
--- NOTE | ~2016-11-03 | PA ---
Unit #: [id number] #: [id number] Patient: BREEZY GIL [id number] [place] [address] [id number] I MR#: [id number] NAME: BREEZY GIL ROOM: [facility] Age: 46 Sex: F Admission Date: 11/03/2016 : 1970 Date of Assessment: 11/04/2016 Attending Physician: Bradley Orta M.D. Admitting Physician: Bradley Orta M.D. Primary Care Physician: Generic Doctor Not In System PSYCHIATRIC ASSESSMENT IDENTIFYING INFORMATION The patient is a 46-year-old single white female admitted to the [address] [place] [address] with recurrent abuse of alcohol. CHIEF COMPLAINT None given. INFORMANT(S) Patient, reliability is fair. HISTORY OF PRESENT ILLNESS The patient is a 46-year-old single white female admitted to the [address] [place] [address] once again complaining of abuse of alcohol. The patient was last discharged from this facility on 10/14/2016. She maintained sobriety for approximately 1 week thereafter. She was reporting positive suicidal ideation at the time of admission. The patient continues to endorse positive hopelessness when seen today but is today finally expressing interest in residential chemical dependence treatment, a treatment option to which she has previously been resistant. For more complete history of present illness, please refer to previously dictated notes. PAST PSYCHIATRIC HISTORY Reviewed, no changes. PAST MEDICAL HISTORY Reviewed, no changes. MEDICATIONS Neurontin, Remeron, Campral, Risperdal, ReVia, Robaxin, Claritin, Protonix, Glucophage, Proventil HFA, NovoLog, Phenergan, Mag Ox, and Tums. ALLERGIES Azithromycin, Zofran, tramadol, Keflex, codeine, erythromycin, ketorolac, latex, morphine, nicotine, propoxyphene. FAMILY HISTORY Reviewed, no changes. SOCIAL HISTORY Reviewed, no changes. MENTAL STATUS EXAMINATION Examination at this time reveals the patient to be a disheveled obese Unit #: [id number] #: [id number] Patient: BREEZY GIL white female appearing stated age. She appears to be in moderate physical distress related to alcohol withdrawal. She is awake, alert, and oriented in all spheres. Her mood is dysphoric, her affect constricted. Speech is generally well-coherent. There are no gross deficits in memory or cognition noted. Intelligence is judged to be in the average range based on fund of knowledge. The patient is cooperative throughout the interview. She currently endorses positive suicidal ideation but has some future orientation. Her judgment and insight appear to be at baseline. She denied current psychotic symptoms. ASSETS AND LIABILITIES The patient's assets are to be assessed. Liabilities: Poor compliance with treatment. DIAGNOSTIC IMPRESSION 1. Alcohol use disorder. 2. History of alcoholic hallucinosis. 3. Dysthymic disorder. 4. End-stage alcoholic liver disease. TREATMENT PLAN The patient remains hospitalized for safety and stabilization. Routine detoxification protocol has been initiated, and we will restart previously prescribed home medications. I will ask the patient's social work coordinator to see her regarding possible initiation of residential chemical dependence treatment. ESTIMATED LENGTH OF STAY 3 to 5 days. Dictated by... Bradley Orta M.D. DORA/cruz TD: 11/04/2016 14:41 JOB #: [id number] PSYCHIATRIC ASSESSMENT Page 1 of 1 X Bradley Orta MD X PSYCHIATRIC ASSESSMENT
--- NOTE | ~2016-11-03 | HP ---
Unit #: [id number] #: [id number] Patient: LORRIE GIL [id number] [place] [address] [id number] I MR#: [id number] NAME: LORRIE GIL ROOM: [facility] Age: 46 Sex: F Admission Date: 11/03/2016 : 1970 Attending Physician: Bradley Orta M.D. Admitting Physician: Bradley Orta M.D. Primary Care Physician: Generic Doctor Not In System HISTORY AND PHYSICAL Lorrie is a 46-year-old female admitted on 11/03/2016 to [facility] for detox from alcohol. She has multiple previous admissions for the same. Recently she was admitted on 10/07/2016. Reviewed the history and physical from that admission and there are no changes. Dictated by... Beverley Brito/katie TD: 11/04/2016 01:34 JOB #: [id number] HISTORY AND PHYSICAL Page 1 of 1 X BRADFORD SIMON APRN HISTORY AND PHYSICAL
--- NOTE | ~2016-11-03 | PN ---
Unit #: [id number] #: [id number] Patient: BREEZY GIL [id number] [facility] [address] [place] [address] [id number] I MR#: [id number] NAME: BREEZY GIL ROOM: [facility] Age: 46 Sex: F Admission Date: 11/03/2016 : 1970 Attending Physician: Bradley Orta M.D. Admitting Physician: Bradley Orta M.D. Primary Care Physician: Generic Doctor Not In System [facility] PROGRESS NOTES DATE 11/05/2016 DISCUSSION The patient complains of auditory hallucinations when seen today. She appears genuinely distressed. Her detox continues uneventfully. We await word regarding possible residential chemical dependence treatment for the patient. Dictated by... Bradley Orta M.D. CB/leigh TD: 11/05/2016 15:04 JOB #: [id number] [facility] PROGRESS NOTES Page 1 of 1 X Bradley Orta MD X PROGRESS NOTE
--- NOTE | ~2016-11-03 | PN ---
Unit #: [id number] #: [id number] Patient: BREEZY GIL [id number] [facility] [address] [place] [address] [id number] I MR#: [id number] NAME: BREEZY GIL ROOM: [facility] Age: 46 Sex: F Admission Date: 11/03/2016 : 1970 Attending Physician: Bradley Orta M.D. Admitting Physician: Bradley Orta M.D. Primary Care Physician: Generic Doctor Not In System [facility] PROGRESS NOTES DATE 11/07/2016 DISCUSSION The patient is abed resting comfortably today. Staff reports no management issues. We continue to await word regarding possible initiation of residential chemical dependence treatment. Dictated by... Bradley Orta M.D. DORA/leigh TD: 11/07/2016 19:57 JOB #: [id number] [facility] PROGRESS NOTES Page 1 of 1 X Bradley Orta MD X PROGRESS NOTE
--- NOTE | ~2016-11-03 | PN ---
Unit #: [id number] #: [id number] Patient: BREEZY GIL [id number] [facility] [address] [place] [address] [id number] I MR#: [id number] NAME: BREEZY GIL ROOM: [facility] Age: 46 Sex: F Admission Date: 11/03/2016 : 1970 Attending Physician: Bradley Orta M.D. Admitting Physician: Bradley Orta M.D. Primary Care Physician: Generic Doctor Not In System [facility] PROGRESS NOTES DATE 11/08/2016 DISCUSSION The patient is resting comfortably today. Staff reports no management issues. Her detox continues with some complaints of visual hallucinations and ongoing autonomic hyperactivity. She continues to express interest in residential chemical dependence treatment. Dictated by... Bradley Orta M.D. CB/cruz TD: 11/08/2016 14:33 JOB #: [id number] [facility] PROGRESS NOTES Page 1 of 1 X Bradley Orta MD X PROGRESS NOTE
--- NOTE | ~2016-11-03 | PN ---
Unit #: [id number] #: [id number] Patient: BREEZY GIL [id number] [facility] [address] [place] [address] [id number] I MR#: [id number] NAME: BREEZY GIL ROOM: [facility] Age: 46 Sex: F Admission Date: 11/03/2016 : 1970 Attending Physician: Bradley Orta M.D. Admitting Physician: Bradley Orta M.D. Primary Care Physician: Generic Doctor Not In System [facility] PROGRESS NOTES DATE 11/06/2016 DISCUSSION The patient continues to complain of visual hallucinations which are most disturbing to her stating that she feels as though she sees "lots of moth flying in front of her face." She continues to be unstable on her feet and continues to require frequent p.r.n.s of Ativan given ongoing symptoms of withdrawal. She is at least reporting that some future orientation and now seems agreeable to residential chemical dependence treatment if it can be arranged. Dictated by... Bradley Orta M.D. CB/cruz TD: 11/06/2016 15:11 JOB #: [id number] [facility] PROGRESS NOTES Page 1 of 1 X Bradley Orta MD X PROGRESS NOTE
[2016-11-04 12:40] LABS: BASOPHIL% 0.4 % (0-2.5); EOSINOPHIL% 0.6 % (0.0-7.0); HEMATOCRIT 35.4 % (35.0-45.0); HEMOGLOBIN 11.1 gm/dL (12.0-16.0); LYMPHOCYTE# 0.6 X10e3 (1.0-3.5); LYMPHOCYTE% 18.3 % (17.0-45.0); MEAN CORPUSCULAR HEMOGLOBIN 28.8 PG (28-34); MEAN CORPUSCULAR HGB CONC 31.3 g/dL (30-36); MEAN PLATELET VOLUME 8.7 FL (6.5-11.5); MONOCYTE# 0.1 X10e3 (0-1.0); NEUTROPHIL# 2.4 X10e3 (1.5-7.1); NEUTROPHIL% 76.7 % (40-75); RED BLOOD COUNT 3.85 X10e (3.90-5.30); RED CELL DISTRIBUTION WIDTH 21.1 % (11.0-15.5); WHITE BLOOD COUNT 3.1 X10e3 (4.0-10.5)
[2016-11-04 13:04] LABS: DIFF IND YES; PLATELET COUNT 89 X10e3 (140-420)
[2016-11-04 13:06] LABS: BILIRUBIN,TOTAL 0.7 mg/dL (0.2-2.0); BUN/CREATININE RATIO 7.5; CALCIUM SERUM 8.6 mg/dL (8.4-10.2); CREATININE SERUM 0.8 mg/dL (0.6-1.4); GLOM FILT RATE Estimated 89.1 mL/min (>60); POTASSIUM 3.4 mmol/L (3.5-5.1); PROTEIN TOTAL SERUM 6.2 g/dL (6.0-8.3)
[2016-11-04 13:11] LABS: PLATELET ESTIMATE DECREASED (NORMAL)
[2016-11-04 13:12] LABS: ANISOCYTOSIS MOD
[2016-11-07 09:59] LABS: URINE APPEARANCE CLEAR; URINE BILIRUBIN NEG (NEG); URINE BLOOD NEG (NEG); URINE COLOR DK YELLOW; URINE GLUCOSE NEG (NEG); URINE KETONE NEG (NEG); URINE LEUKOCYTE ESTERASE NEG (NEG); URINE NITRATE NEG (NEG); URINE PH 7.5 (5-8); URINE PROTEIN 1+ (NEG); URINE SPECIFIC GRAVITY 1.014 (1.003-1.035)
[2016-11-07 10:02] LABS: U HYALINE CASTS AUWI 0-2 /[LPF]; URBCS1 AUWI 0-2 /[HPF] (0-2); URINE BACTERIA AUWI 1+ (NEGATIVE); URINE SQUAMOUS EPITHELIAL CELL FEW /[HPF]
[2016-11-07 10:38] LABS: AMPHETAMINE NEG (NEG); BARBITURATES NEG (NEG); BENZODIAZEPINES POS (NEG); COCAINE NEG (NEG); MARIJUANA NEG (NEG); OPIATES NEG (NEG); TRICYCLIC ANTIDEPRESSANTS NEG (NEG); U METHADONE NEG (NEG)
[2016-11-08 17:27] LABS: ALBUMIN SERUM 3.5 g/dL (3.5-5.0); BILIRUBIN,TOTAL 1.1 mg/dL (0.2-2.0); BUN/CREATININE RATIO 15.71; CALCIUM SERUM 9.4 mg/dL (8.4-10.2); CREATININE SERUM 0.7 mg/dL (0.6-1.4); GLOM FILT RATE Estimated 104.6 mL/min (>60); POTASSIUM 3.8 mmol/L (3.5-5.1)
== END 2016-11-09 13:45 | disposition home or self-care (01) | DRG 897 ==
LOC: P1E 13:56
PROVIDERS: Specialist
PROC: HZ2ZZZZ Detoxification Services for Substance Abuse Treatment (ICD-10-PCS; principal; 2016-11-03)
DX: F10.20 Alcohol dependence, uncomplicated (principal); K70.9 Alcoholic liver disease, unspecified; F34.1 Dysthymic disorder; E11.9 Type 2 diabetes mellitus without complications
CPT/HCPCS: 80053; 80307; 81003; 82150; 82947; 83690; 84703; 85025; 86592

== ENCOUNTER 2016-12-29 15:38 | Inpatient (IN) | payer OTHER ==
[~2016-12-29] VITALS: Ht 157.5 cm; Wt 81.6 kg
--- NOTE | ~2016-12-29 | HP ---
Unit #: [id number] #: [id number] Patient: LORRIE GIL [id number] [place] [address] [id number] I MR#: [id number] NAME: LORRIE GIL ROOM: P171 Age: 46 Sex: F Admission Date: 12/29/2016 : 1970 Attending Physician: Bradley Orta M.D. Admitting Physician: Bradley Orta M.D. Primary Care Physician: Cleo Doctor Not In System HISTORY AND PHYSICAL HISTORY OF PRESENT ILLNESS Lorrie is a 46 year old admitted to [facility] because of her continued abuse of alcohol. She has had numerous admissions to this facility for the same. PAST MEDICAL HISTORY 1. Long history of alcohol abuse. 2. History of withdrawal seizures. 3. Hepatitis C. 4. History of recurrent DVTs. 5. Diabetes mellitus. PAST SURGICAL HISTORY 1. T and A. 2. Cholecystectomy. 3. Incisional hernia repair. 4. Left foot. 5. Oral. ALLERGIES Napsyl, Toradol, Zofran, Ultram, Keflex, codeine, nitro patch, nicotine patch, erythromycin, latex. SOCIAL HISTORY Smokes 1 pack per day. Drinks at least a fifth of liquor on a daily basis and has a history of IV drug use. FAMILY HISTORY Medically noncontributory. REVIEW OF SYSTEMS CONSTITUTIONAL: No fever or chills. HEENT: Denies any sore throat, ear pain or runny nose. CARDIOVASCULAR: Denies chest pain, irregular heart rhythm or palpitations. CHEST: Denies shortness of breath or cough. No hemoptysis. GASTROINTESTINAL: Denies nausea, vomiting, diarrhea or chronic constipation. ENDOCRINE: Denies history of increased thirst or urination. No recent significant weight loss or gain. GENITOURINARY: Denies dysuria, frequency, or hematuria. SKIN: Denies any rashes. HEMATOLOGIC: Denies history of increased bleeding or bruising. MUSCULOSKELETAL: Denies any hot, swollen joints. No generalized muscle pain. Unit #: [id number] #: [id number] Patient: LORRIE GIL NEUROLOGIC: Denies problems with vision or speech. No frequent, severe headaches. No numbness, tingling or weakness in any extremities. Denies loss of bladder or bowel control. CURRENT MEDICATIONS 1. Detox protocol. 2. Levemir 24 units q.h.s. 3. Risperdal 3 mg q.h.s. 4. Remeron 30 mg q.h.s. 5. Lyrica 100 mg b.i.d. 6. Mag-Ox 400 mg b.i.d. 7. Proventil inhaler p.r.n. PHYSICAL EXAMINATION GENERAL: Alert, well-nourished, in no apparent distress. VITAL SIGNS: Blood pressure 140/70, heart rate 80, respirations 16, temperature 98.6. WEIGHT: 180. HEIGHT: 5 feet 2 inches. SKIN: Warm and dry without rash or lesion. HEENT: Normocephalic. TMs not viewed. Oral and nasal passages clear. Conjunctivae clear. PERRLA. EOMs intact. NECK: Supple without lymphadenopathy or thyromegaly. HEART: Regular rate and rhythm without murmur. LUNGS: Clear. ABDOMEN: Soft, nontender. : Not done. EXTREMITIES: No evidence of cyanosis, clubbing or edema. Moves all without focal deficit. NEUROLOGICAL: Grossly within normal limits. Cranial Nerves: II: Visual beatty are intact. III, IV AND : Extraocular movements are intact. Pupils are equal, round and reactive to light. V: Facial sensation is grossly normal. VII: Facial movements and expression are normal. VIII: Auditory acuity grossly intact. IX, X: Uvula is midline. Phonation is normal. XI: Patient shrugs shoulders and turns head normally. XII: Tongue protrudes in the midline. Sensory and Motor Function: Sensory and motor sensation is grossly normal. Motor: moves all extremities well. Coordination: Gait is normal. Deep Tendon Reflexes: Intact. IMPRESSION Psychiatric admission. RECOMMENDATIONS PSYCHIATRIC: Per psychiatrist. MEDICAL: See no contraindication to participate in facility's activities. MEDICAL PROGNOSIS Good. MEDICAL CONDITION Stable. Dictated by... Unit #: [id number] #: [id number] Patient: LORRIE GIL Sandrita ArnettARosalia-Ruby. for Chrissy Aguilar/leigh TD: 12/30/2016 18:49 JOB #: [id number] HISTORY AND PHYSICAL Page 1 of 1 X Nasrin Mae HISTORY AND PHYSICAL
--- NOTE | ~2016-12-29 | PN ---
Unit #: [id number] #: [id number] Patient: BREEZY GIL [id number] [facility] [address] [place] [address] [id number] I MR#: [id number] NAME: BREEZY GIL ROOM: P182 Age: 46 Sex: F Admission Date: 12/29/2016 : 1970 Attending Physician: Bradley Orta M.D. Admitting Physician: Bradley Orta M.D. Primary Care Physician: Generic Doctor Not In System [facility] PROGRESS NOTES DATE 01/01/2017 DISCUSSION The patient is today pushing to leave the hospital because "nobody came to talk to me about residential." I will ask the patient's renal social worker to see her but should she insist on discharge tomorrow, it will be so ordered as she is exhibiting little in the way of signs or symptoms of withdrawal during today's interview. Dictated by... Bradley Orta M.D. CB/leigh TD: 01/01/2017 17:57 JOB #: [id number] [facility] PROGRESS NOTES Page 1 of 1 X Bradley Orta MD PROGRESS NOTE
--- NOTE | ~2016-12-29 | PN ---
Unit #: [id number] #: [id number] Patient: BREEZY GIL [id number] [facility] [address] [place] [address] [id number] I MR#: [id number] NAME: BREEZY GIL ROOM: 71 Age: 46 Sex: F Admission Date: 12/29/2016 : 1970 Attending Physician: Bradley Orta M.D. Admitting Physician: Bradley Orta M.D. Primary Care Physician: Cleo Doctor Not In System [facility] PROGRESS NOTES DATE 12/31/2016 DISCUSSION The patient is abed today. She continues to exhibit significant physical distress related to alcohol withdrawal. She is today expressing some interest in possible residential chemical dependence treatment. I will ask her outreach and education social worker to see her regarding this, and in the meantime we continue her current aggressive pharmacotherapy. Dictated by... Bradley Orta M.D. CB/bzg TD: 12/31/2016 14:33 JOB #: [id number] [facility] PROGRESS NOTES Page 1 of 1 X Bradley Orta MD X PROGRESS NOTE
--- NOTE | ~2016-12-29 | DS ---
Unit #: [id number] #: [id number] Patient: BREEZY GIL [id number] [facility] [address] [place] [address] [id number] I MR#: [id number] NAME: BREEZY GIL ROOM: [facility] Age: 46 Sex: F Admission Date: 12/29/2016 : 1970 Discharge Date: 01/02/2017 Attending Physician: Bradley Orta M.D. Primary Care Physician: Generic Doctor Not In System DISCHARGE SUMMARY REASON FOR ADMISSION The patient is a 46-year-old, single, white female, admitted yet again to the [facility] unit with a relapse of alcohol use and claims of suicidality. HOSPITAL COURSE The patient was admitted to the [facility] unit and restarted on previously prescribed medications. A routine detoxification protocol for alcohol was initiated. The patient participated to no significant degree whatsoever during her brief stay in the hospital on 01/02/2017, she requested discharge from the hospital and was not felt to meet criteria for involuntary hospitalization as at that point, her detox was essentially complete. Discharge was ordered. FINAL DIAGNOSES Alcohol use disorder, dysthymic disorder, alcoholic liver disease, diabetes mellitus, and environmental allergies. DISPOSITION ON DISCHARGE For listing of the patient's medications, please refer to the chart. The patient will follow up through the auspices of community mental health resources. PROGNOSIS Her prognosis remains very poor. Dictated by... Bradley Orta M.D. DORA/angel TD: 01/02/2017 16:38 JOB #: [id number] Unit #: [id number] #: [id number] Patient: BREEZY GIL DISCHARGE SUMMARY Page 1 of 1 X Bradley Orta MD X DISCHARGE SUMMARY
--- NOTE | ~2016-12-29 | PA ---
Unit #: [id number] #: [id number] Patient: BREEZY GIL [id number] [place] [address] [id number] I MR#: [id number] NAME: BREEZY GIL ROOM: P171 Age: 46 Sex: F Admission Date: 12/29/2016 : 1970 Date of Assessment: 12/30/2016 Attending Physician: Bradley Orta M.D. Admitting Physician: Bradley Orta M.D. Primary Care Physician: Generic Doctor Not In System PSYCHIATRIC ASSESSMENT IDENTIFYING INFORMATION The patient is a 46-year-old white female admitted with recurrence of suicidal ideation and alcohol dependence. INFORMANT(S) Chart. Patient could not be aroused for interview. CHIEF COMPLAINT None given. HISTORY OF PRESENT ILLNESS The patient is a 46-year-old white female who was admitted with recurrent alcohol use. She was last admitted to this facility in October of this year. The patient maintained sobriety for no significant period of time thereafter. She had reported positive suicidal ideation with plan to cut her throat at the time of admission. When seen today, the patient is sleeping soundly and cannot be aroused for interview. She was also endorsing positive auditory hallucinations. For a more complete history of present illness, please refer to previous dictated notes. PAST PSYCHIATRIC HISTORY Reviewed, no changes. FAMILY HISTORY/SOCIAL HISTORY Reviewed, no changes. MEDICAL HISTORY Reviewed, no changes. MEDICATION HISTORY 1. Remeron. 2. Risperdal. 3. ReVia. 4. Campral. 5. Robaxin. 6. Claritin. 7. Protonix. 8. Metformin. 9. Mag-Ox. 10. Albuterol. 11. Lyrica. The patient has been noncompliant with ReVia and Campral since discharge. Unit #: [id number] #: [id number] Patient: BREEZY GIL ALLERGIES Azithromycin, Zofran, tramadol, Keflex, codeine, erythromycin, ketorolac, morphine, nicotine, propoxyphene. MENTAL STATUS EXAM At this time, reveals the patient to be an obese disheveled soundly sleeping white female appearing her stated age. She is in no apparent physical distress at time of examination. ASSETS AND LIABILITIES Patient's assets to be assessed. Liabilities, ongoing substance use. ADMITTING DIAGNOSES 1. Alcohol use disorder. 2. Dysthymic disorder. 3. Alcoholic hallucinosis. 4. Morbid obesity. 5. Chronic pain. 6. Diabetes mellitus. PSYCHIATRIC PLAN/TREATMENT GOALS The patient remains hospitalized for safety and stabilization. Routine detoxification protocol has been initiated. The patient will participate in appropriate pickard and milieu activities. The patient's suicide precautions remain in place. ESTIMATED LENGTH OF STAY Three to five days. Dictated by... Bradley Orta M.D. DORA/leigh TD: 12/30/2016 18:16 JOB #: [id number] PSYCHIATRIC ASSESSMENT Page 1 of 1 X Bradley Orta MD X PSYCHIATRIC ASSESSMENT
[2016-12-30 12:52] LABS: BASOPHIL% 0.3 % (0-2.5); EOSINOPHIL% 1.3 % (0.0-7.0); HEMOGLOBIN 10.2 gm/dL (12.0-16.0); LYMPHOCYTE# 0.4 X10e3 (1.0-3.5); LYMPHOCYTE% 17.2 % (17.0-45.0); MEAN CELL VOLUME 91.8 FL (83-96); MEAN CORPUSCULAR HEMOGLOBIN 30.1 PG (28-34); MEAN CORPUSCULAR HGB CONC 32.8 g/dL (30-36); MEAN PLATELET VOLUME 7.9 FL (6.5-11.5); MONOCYTE# 0.1 X10e3 (0-1.0); NEUTROPHIL# 1.9 X10e3 (1.5-7.1); NEUTROPHIL% 76.2 % (40-75); RED BLOOD COUNT 3.38 X10e (3.90-5.30); RED CELL DISTRIBUTION WIDTH 20.7 % (11.0-15.5); WHITE BLOOD COUNT 2.5 X10e3 (4.0-10.5)
[2016-12-30 13:14] LABS: ALBUMIN SERUM 3.1 g/dL (3.5-5.0); BILIRUBIN,TOTAL 0.7 mg/dL (0.2-2.0); BUN/CREATININE RATIO 7.5; CALCIUM SERUM 8.6 mg/dL (8.4-10.2); CREATININE SERUM 0.8 mg/dL (0.6-1.4); GLOM FILT RATE Estimated 89.1 mL/min (>60); POTASSIUM 3.3 mmol/L (3.5-5.1)
[2016-12-30 13:18] LABS: DIFF IND YES; PLATELET COUNT 41 X10e3 (140-420)
[2016-12-30 13:21] LABS: ANISOCYTOSIS MOD; PLATELET ESTIMATE DECREASED (NORMAL)
== END 2017-01-02 14:15 | DRG 897 ==
LOC: P1E 17:22
PROVIDERS: Specialist
PROC: HZ2ZZZZ Detoxification Services for Substance Abuse Treatment (ICD-10-PCS; principal; 2016-12-30)
DX: F10.239 Alcohol dependence with withdrawal, unspecified (principal); E66.01 Morbid (severe) obesity due to excess calories; K70.9 Alcoholic liver disease, unspecified; F34.1 Dysthymic disorder; Z88.5 Allergy status to narcotic agent; Z88.8 Allergy status to other drugs, medicaments and biological substances; Z88.1 Allergy status to other antibiotic agents; Z91.040 Latex allergy status; E11.9 Type 2 diabetes mellitus without complications; F17.200 Nicotine dependence, unspecified, uncomplicated
CPT/HCPCS: 80053; 82947; 84703; 85025; 86592